=== PATIENT | male | born 1935 | race Caucasian/White ===

== ENCOUNTER → 2017-02-18 | Outpatient (CLI) | payer MEDICARE, OTHER ==
[~2017-02-18] MED LIST: /METH500TA OR; ACET65TA PO; ALFUZOSIN OR; ALLO300T OR; ASPI81TA83 OR; BISA10SU2 PR; CIPR500T19 OR; COLA100C2 OR; DILA2TAB OR; GASTROGRAFIN SOLUTION 30ML (Q9963) As Ordered ONE; IBUP600T PO; ISOVUE-370 76% 100ML VIAL (Q9967) As Ordered ONE; MACROBID PO; MAGN500T2 PO; MILKSUS OR; MOVE FREE; MULTIVIT OR; NEXI20GR OR; PERC7.5T8 OR; PROS5TAB OR; SENN8.6T14 OR; VICO5TAB PO; VITA50TA12 OR; ZOCO40TA OR
--- NOTE | 2017-02-18 16:50 | REP ---
CT of the abdomen and pelvis with IV and bowel contrast: Comparison is 2015. The visualized lung gao are unchanged unremarkable. The hepatic parenchyma is homogeneous. There is a focal 1 cm low density lesion at the inferior tip of the liver, unchanged, likely an hepatic cyst. The gallbladder is surgically absent. The pancreas and spleen are normal size, unremarkable and unchanged. The adrenals and kidneys are unchanged. There is no hydronephrosis. There are nonobstructive bilateral renal calculi as previously. There is no abdominal aortic aneurysm. Calcified atheroma is incidentally noted as previously. There is no retroperitoneal adenopathy or mass. There is no bowel distension or obstruction. The appendix is surgically absent. Pelvis: There is a trace of ascites in the dependent pelvis. There is no adenopathy or mass. The bladder is incompletely distended but otherwise unremarkable. There is descending colon and sigmoid colon diverticulosis without diverticulitis as previously. Impression: Diverticulosis without diverticulitis. Nonobstructive renal calculi. No hydronephrosis. There is a 1 cm cyst inferiorly in the right lobe of the liver, unchanged. Cholecystectomy and appendectomy. No bowel obstruction. Trace of ascites in the pelvis. Signed by Lane Butler MD 02/18/2017 04:41 P
== END ==
LOC: M RAD 13:38
PROVIDERS: ATTEND Internal Medicine
DX: R10.31 Right lower quadrant pain (principal); R18.8 Other ascites; K57.30 Diverticulosis of large intestine without perforation or abscess without bleeding; N20.0 Calculus of kidney; K76.89 Other specified diseases of liver
CPT/HCPCS: 74177; Q9963; Q9967

== ENCOUNTER 2017-06-25 08:06 | Inpatient (IN) | payer MEDICARE, OTHER ==
[2017-06-25] MEDS: NS 500 ML IV (08:30)
[2017-06-25 09:01] LABS: HEMATOCRIT 35.9 % (42.0-52.0); HEMOGLOBIN 12.4 g/dl (14.0-18.0); MEAN CORPUSCULAR HEMOGLOBIN 33.2 pg (27.0-33.0); MEAN CORPUSCULAR HGB CONC 34.5 g/dl (32.0-36.5); MEAN CORPUSCULAR VOLUME 96.2 fl (80.0-96.0); PLATELET COUNT, AUTOMATED 191 10^3/uL (150-450); RED BLOOD COUNT 3.73 10^6/uL (4.30-6.10); RED CELL DISTRIBUTION WIDTH 13.8 % (11.5-14.5)
[2017-06-25 09:03] LABS: POS COUNT POS FLAG; POSITIVE MORPH POS FLAG
[2017-06-25 09:04] LABS: ADD MANUAL DIFFER YES; DIFF SLIDE NUMBER 144
[2017-06-25] MEDS: NS 1,000 ML IV ×3 (09:04→16:35)
[2017-06-25] MEDS: ACETAMINOPHEN TAB 650MG DOSE (2X325MG) PO ×2 (09:05→15:38)
[2017-06-25 09:11] LABS: INR 1.44; PROTHROMBIN TIME 17.9 SECONDS (12.4-14.5)
[2017-06-25 09:24] LABS: ANISOCYTOSIS 1+; ATYPICAL LYMPH 2 % (0-5); BANDS 3 % (< 11); LYMPHOCYTES 1 % (16-52); METAMYELOCYTES 3 % (0-0); MONOCYTES 4 % (0-8); MYELOCYTES 1 % (0-0); NEUTROPHILS 86 % (35-75); PLATELET ESTIMATE NORMAL (NORMAL)
[2017-06-25 09:25] LABS: TOXIC GRANULATION 1+
[2017-06-25 09:29] LABS: ALKALINE PHOSPHATASE 64 U/L (45-117); ALT/SGPT 23 U/L (12-78); AST/SGOT 52 U/L (7-37); BILIRUBIN,DIRECT 0.6 MG/DL (0.0-0.2); BILIRUBIN,TOTAL 1.9 MG/DL (0.2-1.0); BLOOD UREA NITROGEN 26 MG/DL (7-18); CALCIUM LEVEL 8.6 MG/DL (8.8-10.2); CARBON DIOXIDE LEVEL 26 MEQ/L (21-32); CHLORIDE LEVEL 105 MEQ/L (98-107); CREATININE FOR GFR 1.36 MG/DL (0.70-1.30); GLUCOSE, FASTING 135 MG/DL (70-100); LIPASE 39 U/L (73-393); POTASSIUM SERUM 3.4 MEQ/L (3.5-5.1); TOTAL PROTEIN 6.3 GM/DL (6.4-8.2); TROPONIN I 0.02 NG/ML (< 0.10)
[2017-06-25 09:30] LABS: LACTIC ACID SEPSIS PROTOCOL 3.1 MMOL/L (0.4-2.0)
[2017-06-25 09:39] LABS: CK-MB VALUE MASS 5.9 NG/ML (0.0-3.6); CPK CREATINE PHOSPHOKINASE 2052 U/L (39-308); MB/CK RELATIVE INDEX 0.28 (< OR =4)
[2017-06-25 09:44] LABS: ALBUMIN 3.3 GM/DL (3.2-5.2); ANION GAP 10 MEQ/L (8-16); SODIUM LEVEL 141 MEQ/L (136-145)
[2017-06-25 10:28] LABS: KETONE, URINE AUTO RFX TRACE mg/dL (NEGATIVE); LEUKOCYTE ESTERASE UR AUTO RFX NEGATIVE (NEGATIVE); MUCUS, URINE RFX SMALL (NEGATIVE); NITRITE, URINE AUTO RFX NEGATIVE (NEGATIVE); RBC, URINE AUTO RFX 38 /HPF (0-3); SQUAM EPITHELIAL CELL UR AURFX 1 /HPF (0-6); WBC, URINE AUTO RFX 8 /HPF (0-3)
[2017-06-25 10:46] LABS: INFLUENZA A AMPLIFICATION NEGATIVE (NEGATIVE); INFLUENZA B AMPLIFICATION NEGATIVE (NEGATIVE)
[2017-06-25] MEDS: LevoFLOXacin IV 750 MG in APPROPRIATE DILUENT 1 EA IV (10:49)
[2017-06-25] MEDS: NS IV (10:50)
[2017-06-25] MEDS: DILUENT IV (10:50)
[2017-06-25 11:09] LABS: PHOSPHORUS LEVEL 1.1 MG/DL (2.5-4.9)
[2017-06-25 11:38] LABS: MYOGLOBIN 7108 NG/ML (16-116)
[2017-06-25] MEDS ORDERED: ONDANSETRON 4MG/2ML VIAL (J2405) IV (11:45)
[2017-06-25] MEDS ORDERED: POTASSIUM PHOSPHATE INJ 30 MMOL in D5W 500 ML IV ×2 (13:00→14:00)
[2017-06-25] MEDS: POTASSIUM PHOSPHATE INJ 30 MMOL in D5W 500 ML IV (15:37)
[2017-06-25 16:12] LABS: LACTIC ACID SEPSIS PROTOCOL 2.1 MMOL/L (0.4-2.0)
[2017-06-25 16:27] LABS: MYOGLOBIN SCREEN, URINE POSITIVE (NEGATIVE)
[2017-06-25 17:10] LABS: SODIUM,RANDOM URINE < 10 MEQ/L
[2017-06-25] MEDS: traMADol 50 MG TAB PO (17:13)
[2017-06-25] MEDS: HEPARIN SOD (PORCINE) 5000 UNITS/ML VIAL SC ×2 (17:45→21:08)
[2017-06-25] MEDS: SENOKOT S TAB PO (17:45)
[2017-06-25] MEDS: PANTOPRAZOLE 40MG TAB (PROTONIX) PO (17:45)
[2017-06-25] MEDS: ASPIRIN 81 MG ENTERIC TAB PO (17:45)
[2017-06-25] MEDS: ALLOPURINOL 100 MG TAB PO (17:45)
[2017-06-25 18:12] LABS: ANION GAP 8 MEQ/L (8-16); BLOOD UREA NITROGEN 24 MG/DL (7-18); CALCIUM LEVEL 7.7 MG/DL (8.8-10.2); CARBON DIOXIDE LEVEL 24 MEQ/L (21-32); CHLORIDE LEVEL 108 MEQ/L (98-107); CREATININE FOR GFR 0.98 MG/DL (0.70-1.30); GLOMERULAR FILTRATION RATE > 60.0 (>35); GLUCOSE, FASTING 129 MG/DL (70-100); PHOSPHORUS LEVEL 1.8 MG/DL (2.5-4.9); POTASSIUM SERUM 3.5 MEQ/L (3.5-5.1); SODIUM LEVEL 140 MEQ/L (136-145)
[2017-06-25] MEDS: MORPHINE 4 MG/ML 1ML VIAL (J2270) IV ×3 (18:42→23:23)
[2017-06-25] MEDS: FAMOTIDINE 20 MG TAB PO (21:06)
[2017-06-25] MEDS: ATORVASTATIN 20 MG TAB PO (21:06)
[2017-06-25] MEDS: FINASTERIDE 5 MG TAB PO (21:06)
[2017-06-25] MEDS: SODIUM PHOSPHATE INJ 20 MMOL in D5W 250 ML IV (21:54)
[2017-06-26] MEDS: ACETAMINOPHEN TAB 650MG DOSE (2X325MG) PO ×3 (00:40→09:40)
[2017-06-26] MEDS: SALIVA SUBSTITUTE(MOUTHKOTE) BTL MT ×2 (00:40→03:22)
[2017-06-26] MEDS: NS 1,000 ML IV ×3 (03:22→20:40)
[2017-06-26] MEDS: MORPHINE 4 MG/ML 1ML VIAL (J2270) IV ×3 (03:29→20:30)
[2017-06-26] MEDS: KETOROLAC 30 MG/ML VIAL (J1885) IV ×2 (04:53→14:09)
[2017-06-26] MEDS: HEPARIN SOD (PORCINE) 5000 UNITS/ML VIAL SC ×3 (04:53→20:31)
[2017-06-26] MEDS: CEPACOL LOZENGE PO (04:54)
[2017-06-26 06:33] LABS: HEMATOCRIT 32.4 % (42.0-52.0); HEMOGLOBIN 11.3 g/dl (14.0-18.0); MEAN CORPUSCULAR HEMOGLOBIN 33.3 pg (27.0-33.0); MEAN CORPUSCULAR HGB CONC 34.9 g/dl (32.0-36.5); MEAN CORPUSCULAR VOLUME 95.6 fl (80.0-96.0); PLATELET COUNT, AUTOMATED 169 10^3/uL (150-450); RED BLOOD COUNT 3.39 10^6/uL (4.30-6.10); RED CELL DISTRIBUTION WIDTH 13.8 % (11.5-14.5); WHITE BLOOD COUNT 26.3 10^3/uL (4.0-10.0)
[2017-06-26 06:34] LABS: ADD MANUAL DIFFER YES; DIFF SLIDE NUMBER 84; POS COUNT POS FLAG; POSITIVE MORPH POS FLAG
[2017-06-26 06:52] LABS: ALBUMIN 2.4 GM/DL (3.2-5.2); ALBUMIN/GLOBULIN RATIO 0.73 (1.00-1.93); ALKALINE PHOSPHATASE 62 U/L (45-117); ALT/SGPT 34 U/L (12-78); ANION GAP 8 MEQ/L (8-16); AST/SGOT 69 U/L (7-37); BILIRUBIN,TOTAL 1.1 MG/DL (0.2-1.0); BLOOD UREA NITROGEN 22 MG/DL (7-18); CALCIUM LEVEL 7.7 MG/DL (8.8-10.2); CARBON DIOXIDE LEVEL 24 MEQ/L (21-32); CHLORIDE LEVEL 106 MEQ/L (98-107); CPK CREATINE PHOSPHOKINASE 1325 U/L (39-308); CREATININE FOR GFR 0.87 MG/DL (0.70-1.30); GLOMERULAR FILTRATION RATE > 60.0 (>35); GLUCOSE, FASTING 102 MG/DL (70-100); POTASSIUM SERUM 3.4 MEQ/L (3.5-5.1); SODIUM LEVEL 138 MEQ/L (136-145); TOTAL PROTEIN 5.7 GM/DL (6.4-8.2)
[2017-06-26 07:11] LABS: BANDS 5 % (< 11); LYMPHOCYTES 6 % (16-52); MONOCYTES 7 % (0-8); NEUTROPHILS 82 % (35-75)
[2017-06-26 07:12] LABS: ANISOCYTOSIS 1+; PLATELET ESTIMATE NORMAL (NORMAL)
[2017-06-26 08:19] LABS: PHOSPHORUS LEVEL 2.1 MG/DL (2.5-4.9)
[2017-06-26] MEDS ORDERED: PIPERACILLIN/TAZOBACTAM SOD 2.25 GM in APPROPRIATE DILUENT 1 EA IV (09:00)
[2017-06-26] MEDS: NS 500 ML IV (09:25)
[2017-06-26] MEDS: FAMOTIDINE 20 MG TAB PO ×2 (09:38→20:29)
[2017-06-26] MEDS: ASPIRIN 81 MG ENTERIC TAB PO (09:39)
[2017-06-26] MEDS: ALLOPURINOL 100 MG TAB PO (09:39)
[2017-06-26] MEDS: PIPERACILLIN/TAZOBACTAM SOD 3.375 GM in APPROPRIATE DILUENT 1 EA IV ×3 (09:40→20:40)
[2017-06-26] MEDS: PANTOPRAZOLE 40MG TAB (PROTONIX) PO (09:40)
[2017-06-26] MEDS: NEUTRA-PHOS 1.25 GM PACKET PO ×3 (10:18→20:31)
[2017-06-26] MEDS: POTASSIUM CHLORIDE 10 MEQ SR TABLET PO (10:19)
[2017-06-26] MEDS ORDERED: SLF 3 ML SYR IV (17:15)
[2017-06-26] MEDS: ATORVASTATIN 20 MG TAB PO (20:29)
[2017-06-26] MEDS: FINASTERIDE 5 MG TAB PO (20:30)
[2017-06-26] MEDS: SLF 3 ML SYR IV (20:31)
[2017-06-26] MEDS: MAALOX 30 ML SUSP *UDC PO (23:17)
[2017-06-27] MEDS: NS 1,000 ML IV (01:49)
[2017-06-27] MEDS: MORPHINE 4 MG/ML 1ML VIAL (J2270) IV ×2 (01:57→05:18)
[2017-06-27] MEDS: PIPERACILLIN/TAZOBACTAM SOD 3.375 GM in APPROPRIATE DILUENT 1 EA IV ×4 (01:57→21:08)
[2017-06-27] MEDS: KETOROLAC 30 MG/ML VIAL (J1885) IV ×2 (04:00→13:56)
[2017-06-27 05:17] LABS: BASO # 0.1 10^3/uL (0.0-0.2); BASO % 0.2 % (0.0-1.0); EOS % 0.2 % (0.0-3.0); HEMATOCRIT 32.5 % (42.0-52.0); HEMOGLOBIN 11.4 g/dl (14.0-18.0); IMMATURE GRANULOCYTE % 0.6 % (0-3.0); LYMPH % 4.5 % (24.0-44.0); MEAN CORPUSCULAR HEMOGLOBIN 32.9 pg (27.0-33.0); MEAN CORPUSCULAR HGB CONC 35.1 g/dl (32.0-36.5); MEAN CORPUSCULAR VOLUME 93.9 fl (80.0-96.0); MONO # 1.2 10^3/uL (0.0-0.8); MONO % 5.3 % (0.0-5.0); NEUTROPHILS # 20.4 10^3/uL (1.8-7.7); NEUTROPHILS % 89.2 % (36.0-66.0); PLATELET COUNT, AUTOMATED 173 10^3/uL (150-450); RED BLOOD COUNT 3.46 10^6/uL (4.30-6.10); WHITE BLOOD COUNT 22.8 10^3/uL (4.0-10.0)
[2017-06-27] MEDS: HEPARIN SOD (PORCINE) 5000 UNITS/ML VIAL SC ×3 (05:18→21:09)
[2017-06-27] MEDS: SLF 3 ML SYR IV ×3 (05:19→21:09)
[2017-06-27 05:45] LABS: ALBUMIN 2.1 GM/DL (3.2-5.2); ALBUMIN/GLOBULIN RATIO 0.64 (1.00-1.93); ALKALINE PHOSPHATASE 67 U/L (45-117); ALT/SGPT 43 U/L (12-78); ANION GAP 6 MEQ/L (8-16); AST/SGOT 61 U/L (7-37); BILIRUBIN,TOTAL 0.6 MG/DL (0.2-1.0); BLOOD UREA NITROGEN 22 MG/DL (7-18); CALCIUM LEVEL 7.6 MG/DL (8.8-10.2); CARBON DIOXIDE LEVEL 24 MEQ/L (21-32); CHLORIDE LEVEL 108 MEQ/L (98-107); CPK CREATINE PHOSPHOKINASE 464 U/L (39-308); CREATININE FOR GFR 0.73 MG/DL (0.70-1.30); GLOMERULAR FILTRATION RATE > 60.0 (>35); GLUCOSE, FASTING 100 MG/DL (70-100); MAGNESIUM LEVEL 2.4 MG/DL (1.8-2.4); POTASSIUM SERUM 3.5 MEQ/L (3.5-5.1); SODIUM LEVEL 138 MEQ/L (136-145); TOTAL PROTEIN 5.4 GM/DL (6.4-8.2)
[2017-06-27] MEDS ORDERED: MORPHINE 4 MG/ML 1ML VIAL (J2270) IV (08:45)
[2017-06-27] MEDS: NEUTRA-PHOS 1.25 GM PACKET PO ×3 (09:02→21:09)
[2017-06-27] MEDS: ASPIRIN 81 MG ENTERIC TAB PO (09:02)
[2017-06-27] MEDS: ALLOPURINOL 100 MG TAB PO (09:02)
[2017-06-27] MEDS: FAMOTIDINE 20 MG TAB PO ×2 (09:03→21:09)
[2017-06-27] MEDS: PANTOPRAZOLE 40MG TAB (PROTONIX) PO (09:03)
[2017-06-27] MEDS ORDERED: LevoFLOXacin IV 750 MG in APPROPRIATE DILUENT 1 EA IV (11:00)
[2017-06-27] MEDS: MOM 30ML SUSPENSION UDC PO (13:55)
[2017-06-27 14:04] LABS: PHOSPHORUS LEVEL 1.7 MG/DL (2.5-4.9)
[2017-06-27] MEDS: ATORVASTATIN 20 MG TAB PO (21:09)
[2017-06-27] MEDS: FINASTERIDE 5 MG TAB PO (21:09)
[2017-06-28] MEDS: HEPARIN SOD (PORCINE) 5000 UNITS/ML VIAL SC ×3 (05:17→21:46)
[2017-06-28] MEDS: PIPERACILLIN/TAZOBACTAM SOD 3.375 GM in APPROPRIATE DILUENT 1 EA IV ×4 (05:17→21:44)
[2017-06-28] MEDS: SLF 3 ML SYR IV ×3 (05:17→21:47)
[2017-06-28 05:38] LABS: BASO % 0.1 % (0.0-1.0); EOS # 0.1 10^3/uL (0.0-0.50); EOS % 0.6 % (0.0-3.0); HEMATOCRIT 32.8 % (42.0-52.0); HEMOGLOBIN 11.6 g/dl (14.0-18.0); IMMATURE GRANULOCYTE % 0.8 % (0-3.0); LYMPH # 1.5 10^3/uL (1.5-4.5); LYMPH % 7.6 % (24.0-44.0); MEAN CORPUSCULAR HEMOGLOBIN 32.7 pg (27.0-33.0); MEAN CORPUSCULAR HGB CONC 35.4 g/dl (32.0-36.5); MEAN CORPUSCULAR VOLUME 92.4 fl (80.0-96.0); MONO # 1.6 10^3/uL (0.0-0.8); MONO % 8.2 % (0.0-5.0); NEUTROPHILS # 16.3 10^3/uL (1.8-7.7); NEUTROPHILS % 82.7 % (36.0-66.0); PLATELET COUNT, AUTOMATED 190 10^3/uL (150-450); RED BLOOD COUNT 3.55 10^6/uL (4.30-6.10); RED CELL DISTRIBUTION WIDTH 13.7 % (11.5-14.5); WHITE BLOOD COUNT 19.7 10^3/uL (4.0-10.0)
[2017-06-28 05:56] LABS: ALBUMIN 2.2 GM/DL (3.2-5.2); ALBUMIN/GLOBULIN RATIO 0.59 (1.00-1.93); ALKALINE PHOSPHATASE 109 U/L (45-117); ALT/SGPT 73 U/L (12-78); ANION GAP 7 MEQ/L (8-16); AST/SGOT 76 U/L (7-37); BILIRUBIN,TOTAL 0.7 MG/DL (0.2-1.0); BLOOD UREA NITROGEN 16 MG/DL (7-18); CALCIUM LEVEL 8.2 MG/DL (8.8-10.2); CARBON DIOXIDE LEVEL 26 MEQ/L (21-32); CHLORIDE LEVEL 107 MEQ/L (98-107); CPK CREATINE PHOSPHOKINASE 276 U/L (39-308); CREATININE FOR GFR 0.66 MG/DL (0.70-1.30); GLOMERULAR FILTRATION RATE > 60.0 (>35); GLUCOSE, FASTING 93 MG/DL (70-100); MAGNESIUM LEVEL 2.2 MG/DL (1.8-2.4); PHOSPHORUS LEVEL 1.9 MG/DL (2.5-4.9); POTASSIUM SERUM 3.3 MEQ/L (3.5-5.1); SODIUM LEVEL 140 MEQ/L (136-145); TOTAL PROTEIN 5.9 GM/DL (6.4-8.2)
[2017-06-28] MEDS: KETOROLAC 30 MG/ML VIAL (J1885) IV ×2 (08:32→21:45)
[2017-06-28] MEDS: FAMOTIDINE 20 MG TAB PO ×2 (08:33→21:45)
[2017-06-28] MEDS: ALLOPURINOL 100 MG TAB PO (08:33)
[2017-06-28] MEDS: POTASSIUM CHLORIDE 10 MEQ SR TABLET PO (08:33)
[2017-06-28] MEDS: NEUTRA-PHOS 1.25 GM PACKET PO ×3 (08:33→21:46)
[2017-06-28] MEDS: PANTOPRAZOLE 40MG TAB (PROTONIX) PO (08:33)
[2017-06-28] MEDS: ASPIRIN 81 MG ENTERIC TAB PO (08:34)
[2017-06-28] MEDS ORDERED: PERCOCET 5MG/325MG TAB PO (10:00)
[2017-06-28] MEDS: FINASTERIDE 5 MG TAB PO (21:45)
[2017-06-28] MEDS: LATANOPROST 0.005% OPHTH SOLN 2.5 ML OU (21:45)
[2017-06-28] MEDS: ATORVASTATIN 20 MG TAB PO (21:45)
[2017-06-28] MEDS: NORTRIPTYLINE 10 MG CAP PO (21:46)
[2017-06-29] MEDS: ACETAMINOPHEN TAB 650MG DOSE (2X325MG) PO ×2 (00:55→23:57)
[2017-06-29] MEDS: PIPERACILLIN/TAZOBACTAM SOD 3.375 GM in APPROPRIATE DILUENT 1 EA IV ×4 (04:26→21:00)
[2017-06-29 05:11] LABS: BASO % 0.1 % (0.0-1.0); EOS # 0.3 10^3/uL (0.0-0.50); EOS % 2.2 % (0.0-3.0); HEMATOCRIT 31.7 % (42.0-52.0); HEMOGLOBIN 10.8 g/dl (14.0-18.0); IMMATURE GRANULOCYTE % 1.3 % (0-3.0); MEAN CORPUSCULAR HEMOGLOBIN 32.4 pg (27.0-33.0); MEAN CORPUSCULAR HGB CONC 34.1 g/dl (32.0-36.5); MEAN CORPUSCULAR VOLUME 95.2 fl (80.0-96.0); MONO # 1.5 10^3/uL (0.0-0.8); MONO % 11.3 % (0.0-5.0); NEUTROPHILS # 9.4 10^3/uL (1.8-7.7); NEUTROPHILS % 70.1 % (36.0-66.0); PLATELET COUNT, AUTOMATED 186 10^3/uL (150-450); RED BLOOD COUNT 3.33 10^6/uL (4.30-6.10); RED CELL DISTRIBUTION WIDTH 14.6 % (11.5-14.5); WHITE BLOOD COUNT 13.4 10^3/uL (4.0-10.0)
[2017-06-29] MEDS: SLF 3 ML SYR IV ×3 (05:27→20:35)
[2017-06-29] MEDS: HEPARIN SOD (PORCINE) 5000 UNITS/ML VIAL SC ×3 (05:27→20:34)
[2017-06-29 05:33] LABS: ALBUMIN 2.1 GM/DL (3.2-5.2); ALBUMIN/GLOBULIN RATIO 0.62 (1.00-1.93); ALKALINE PHOSPHATASE 104 U/L (45-117); ALT/SGPT 81 U/L (12-78); ANION GAP 6 MEQ/L (8-16); AST/SGOT 70 U/L (7-37); BILIRUBIN,TOTAL 0.5 MG/DL (0.2-1.0); BLOOD UREA NITROGEN 13 MG/DL (7-18); C REACTIVE PROTEIN QUANTITATIV 7.42 MG/DL (0.00-0.30); CALCIUM LEVEL 7.5 MG/DL (8.8-10.2); CARBON DIOXIDE LEVEL 28 MEQ/L (21-32); CHLORIDE LEVEL 111 MEQ/L (98-107); CPK CREATINE PHOSPHOKINASE 167 U/L (39-308); CREATININE FOR GFR 0.59 MG/DL (0.70-1.30); GLOMERULAR FILTRATION RATE > 60.0 (>35); GLUCOSE, FASTING 94 MG/DL (70-100); MAGNESIUM LEVEL 2.1 MG/DL (1.8-2.4); PHOSPHORUS LEVEL 3.6 MG/DL (2.5-4.9); POTASSIUM SERUM 3.4 MEQ/L (3.5-5.1); SODIUM LEVEL 145 MEQ/L (136-145); TOTAL PROTEIN 5.5 GM/DL (6.4-8.2)
[2017-06-29] MEDS: KETOROLAC 30 MG/ML VIAL (J1885) IV (08:10)
[2017-06-29] MEDS: NEUTRA-PHOS 1.25 GM PACKET PO ×3 (08:10→20:33)
[2017-06-29] MEDS: ALLOPURINOL 100 MG TAB PO (08:11)
[2017-06-29] MEDS: POTASSIUM CHLORIDE 10 MEQ SR TABLET PO (08:11)
[2017-06-29] MEDS: PANTOPRAZOLE 40MG TAB (PROTONIX) PO (08:11)
[2017-06-29] MEDS: FAMOTIDINE 20 MG TAB PO ×2 (08:11→20:33)
[2017-06-29] MEDS: ASPIRIN 81 MG ENTERIC TAB PO (08:11)
[2017-06-29] MEDS ORDERED: OMEPRAZOLE 20 MG CAP PO (09:00)
[2017-06-29] MEDS: GABAPENTIN 100 MG CAP PO ×3 (10:55→20:32)
[2017-06-29] MEDS: FINASTERIDE 5 MG TAB PO (20:32)
[2017-06-29] MEDS: NORTRIPTYLINE 10 MG CAP PO (20:34)
[2017-06-29] MEDS: LATANOPROST 0.005% OPHTH SOLN 2.5 ML OU (20:34)
[2017-06-29] MEDS: ATORVASTATIN 20 MG TAB PO (20:35)
[2017-06-30] MEDS: PIPERACILLIN/TAZOBACTAM SOD 3.375 GM in APPROPRIATE DILUENT 1 EA IV ×2 (03:00→08:27)
[2017-06-30 05:24] LABS: BASO # 0.1 10^3/uL (0.0-0.2); BASO % 0.4 % (0.0-1.0); EOS # 0.4 10^3/uL (0.0-0.50); EOS % 3.2 % (0.0-3.0); HEMATOCRIT 33.4 % (42.0-52.0); HEMOGLOBIN 11.3 g/dl (14.0-18.0); IMMATURE GRANULOCYTE % 1.9 % (0-3.0); LYMPH # 2.5 10^3/uL (1.5-4.5); LYMPH % 18.1 % (24.0-44.0); MEAN CORPUSCULAR HEMOGLOBIN 32.3 pg (27.0-33.0); MEAN CORPUSCULAR HGB CONC 33.8 g/dl (32.0-36.5); MEAN CORPUSCULAR VOLUME 95.4 fl (80.0-96.0); MONO # 1.7 10^3/uL (0.0-0.8); MONO % 12.2 % (0.0-5.0); NEUTROPHILS # 8.9 10^3/uL (1.8-7.7); NEUTROPHILS % 64.2 % (36.0-66.0); PLATELET COUNT, AUTOMATED 227 10^3/uL (150-450); RED CELL DISTRIBUTION WIDTH 14.6 % (11.5-14.5); WHITE BLOOD COUNT 13.8 10^3/uL (4.0-10.0)
[2017-06-30] MEDS: SLF 3 ML SYR IV ×3 (05:27→21:29)
[2017-06-30] MEDS: HEPARIN SOD (PORCINE) 5000 UNITS/ML VIAL SC ×3 (05:31→21:28)
[2017-06-30 05:47] LABS: ALBUMIN 2.1 GM/DL (3.2-5.2); ALBUMIN/GLOBULIN RATIO 0.78 (1.00-1.93); ALKALINE PHOSPHATASE 110 U/L (45-117); ALT/SGPT 86 U/L (12-78); ANION GAP 8 MEQ/L (8-16); AST/SGOT 61 U/L (7-37); BILIRUBIN,TOTAL 0.6 MG/DL (0.2-1.0); BLOOD UREA NITROGEN 11 MG/DL (7-18); C REACTIVE PROTEIN QUANTITATIV 5.26 MG/DL (0.00-0.30); CALCIUM LEVEL 7.6 MG/DL (8.8-10.2); CARBON DIOXIDE LEVEL 26 MEQ/L (21-32); CHLORIDE LEVEL 110 MEQ/L (98-107); CPK CREATINE PHOSPHOKINASE 73 U/L (39-308); CREATININE FOR GFR 0.61 MG/DL (0.70-1.30); GLOMERULAR FILTRATION RATE > 60.0 (>35); GLUCOSE, FASTING 83 MG/DL (70-100); PHOSPHORUS LEVEL 3.1 MG/DL (2.5-4.9); SODIUM LEVEL 144 MEQ/L (136-145); TOTAL PROTEIN 4.8 GM/DL (6.4-8.2)
[2017-06-30] MEDS ORDERED: LevoFLOXacin 750 MG TABLET PO (06:00)
[2017-06-30] MEDS: ASPIRIN 81 MG ENTERIC TAB PO (08:28)
[2017-06-30] MEDS: ALLOPURINOL 100 MG TAB PO (08:28)
[2017-06-30] MEDS: ACETAMINOPHEN TAB 650MG DOSE (2X325MG) PO ×2 (08:28→21:28)
[2017-06-30] MEDS: FAMOTIDINE 20 MG TAB PO ×2 (08:28→20:10)
[2017-06-30] MEDS: GABAPENTIN 100 MG CAP PO ×3 (08:28→20:09)
[2017-06-30] MEDS: PANTOPRAZOLE 40MG TAB (PROTONIX) PO (08:28)
[2017-06-30] MEDS: NEUTRA-PHOS 1.25 GM PACKET PO ×3 (08:29→20:09)
[2017-06-30] MEDS: NORTRIPTYLINE 10 MG CAP PO (20:09)
[2017-06-30] MEDS: ATORVASTATIN 20 MG TAB PO (20:10)
[2017-06-30] MEDS: LATANOPROST 0.005% OPHTH SOLN 2.5 ML OU (20:10)
[2017-06-30] MEDS: FINASTERIDE 5 MG TAB PO (20:10)
[2017-06-30] MEDS: LevoFLOXacin 500 MG TABLET PO (20:10)
[2017-07-01] MEDS: HEPARIN SOD (PORCINE) 5000 UNITS/ML VIAL SC ×3 (05:13→21:12)
[2017-07-01] MEDS: SLF 3 ML SYR IV ×3 (05:13→21:13)
[2017-07-01] MEDS: ACETAMINOPHEN TAB 650MG DOSE (2X325MG) PO ×2 (05:13→21:12)
[2017-07-01 05:32] LABS: BASO # 0.1 10^3/uL (0.0-0.2); BASO % 0.3 % (0.0-1.0); EOS # 0.3 10^3/uL (0.0-0.50); EOS % 1.8 % (0.0-3.0); HEMOGLOBIN 11.2 g/dl (14.0-18.0); IMMATURE GRANULOCYTE % 1.8 % (0-3.0); LYMPH # 2.3 10^3/uL (1.5-4.5); LYMPH % 12.6 % (24.0-44.0); MEAN CORPUSCULAR HEMOGLOBIN 32.6 pg (27.0-33.0); MEAN CORPUSCULAR HGB CONC 33.9 g/dl (32.0-36.5); MEAN CORPUSCULAR VOLUME 95.9 fl (80.0-96.0); MONO # 1.5 10^3/uL (0.0-0.8); MONO % 8.1 % (0.0-5.0); NEUTROPHILS % 75.4 % (36.0-66.0); PLATELET COUNT, AUTOMATED 244 10^3/uL (150-450); RED BLOOD COUNT 3.44 10^6/uL (4.30-6.10); RED CELL DISTRIBUTION WIDTH 14.2 % (11.5-14.5); WHITE BLOOD COUNT 18.6 10^3/uL (4.0-10.0)
[2017-07-01 05:52] LABS: ALBUMIN/GLOBULIN RATIO 0.54 (1.00-1.93); ALKALINE PHOSPHATASE 104 U/L (45-117); ALT/SGPT 68 U/L (12-78); ANION GAP 7 MEQ/L (8-16); AST/SGOT 37 U/L (7-37); BILIRUBIN,TOTAL 0.5 MG/DL (0.2-1.0); BLOOD UREA NITROGEN 10 MG/DL (7-18); C REACTIVE PROTEIN QUANTITATIV 6.06 MG/DL (0.00-0.30); CARBON DIOXIDE LEVEL 29 MEQ/L (21-32); CHLORIDE LEVEL 106 MEQ/L (98-107); CREATININE FOR GFR 0.64 MG/DL (0.70-1.30); GLOMERULAR FILTRATION RATE > 60.0 (>35); GLUCOSE, FASTING 89 MG/DL (70-100); MAGNESIUM LEVEL 2.1 MG/DL (1.8-2.4); PHOSPHORUS LEVEL 2.8 MG/DL (2.5-4.9); POTASSIUM SERUM 3.9 MEQ/L (3.5-5.1); SODIUM LEVEL 142 MEQ/L (136-145); TOTAL PROTEIN 5.7 GM/DL (6.4-8.2)
[2017-07-01] MEDS: PANTOPRAZOLE 40MG TAB (PROTONIX) PO (09:03)
[2017-07-01] MEDS: ALLOPURINOL 100 MG TAB PO (09:03)
[2017-07-01] MEDS: NEUTRA-PHOS 1.25 GM PACKET PO ×3 (09:03→21:12)
[2017-07-01] MEDS: FAMOTIDINE 20 MG TAB PO ×2 (09:03→21:12)
[2017-07-01] MEDS: GABAPENTIN 100 MG CAP PO ×3 (09:03→21:12)
[2017-07-01] MEDS: ASPIRIN 81 MG ENTERIC TAB PO (09:03)
[2017-07-01] MEDS: PIPERACILLIN/TAZOBACTAM SOD 3.375 GM in APPROPRIATE DILUENT 1 EA IV ×2 (11:12→16:07)
[2017-07-01] MEDS: LATANOPROST 0.005% OPHTH SOLN 2.5 ML OU (21:00)
[2017-07-01] MEDS: ATORVASTATIN 20 MG TAB PO (21:11)
[2017-07-01] MEDS: NORTRIPTYLINE 10 MG CAP PO (21:11)
[2017-07-01] MEDS: FINASTERIDE 5 MG TAB PO (21:12)
[2017-07-02] MEDS: PIPERACILLIN/TAZOBACTAM SOD 3.375 GM in APPROPRIATE DILUENT 1 EA IV ×5 (00:04→22:53)
[2017-07-02] MEDS: ACETAMINOPHEN TAB 650MG DOSE (2X325MG) PO (05:02)
[2017-07-02] MEDS: SLF 3 ML SYR IV ×3 (05:02→21:33)
[2017-07-02 05:30] LABS: BASO # 0.1 10^3/uL (0.0-0.2); BASO % 0.2 % (0.0-1.0); EOS # 0.3 10^3/uL (0.0-0.50); EOS % 1.2 % (0.0-3.0); HEMOGLOBIN 11.6 g/dl (14.0-18.0); IMMATURE GRANULOCYTE % 1.7 % (0-3.0); LYMPH # 2.6 10^3/uL (1.5-4.5); LYMPH % 12.1 % (24.0-44.0); MEAN CORPUSCULAR HEMOGLOBIN 32.7 pg (27.0-33.0); MEAN CORPUSCULAR HGB CONC 34.1 g/dl (32.0-36.5); MEAN CORPUSCULAR VOLUME 95.8 fl (80.0-96.0); MONO # 1.3 10^3/uL (0.0-0.8); MONO % 6.2 % (0.0-5.0); NEUTROPHILS # 17.1 10^3/uL (1.8-7.7); NEUTROPHILS % 78.6 % (36.0-66.0); PLATELET COUNT, AUTOMATED 285 10^3/uL (150-450); RED BLOOD COUNT 3.55 10^6/uL (4.30-6.10); RED CELL DISTRIBUTION WIDTH 14.2 % (11.5-14.5); WHITE BLOOD COUNT 21.7 10^3/uL (4.0-10.0)
[2017-07-02] MEDS: HEPARIN SOD (PORCINE) 5000 UNITS/ML VIAL SC ×3 (05:43→21:32)
[2017-07-02 06:01] LABS: ALBUMIN 2.2 GM/DL (3.2-5.2); ALBUMIN/GLOBULIN RATIO 0.56 (1.00-1.93); ALKALINE PHOSPHATASE 103 U/L (45-117); ALT/SGPT 59 U/L (12-78); ANION GAP 6 MEQ/L (8-16); AST/SGOT 25 U/L (7-37); BILIRUBIN,TOTAL 0.5 MG/DL (0.2-1.0); BLOOD UREA NITROGEN 9 MG/DL (7-18); CALCIUM LEVEL 8.1 MG/DL (8.8-10.2); CARBON DIOXIDE LEVEL 29 MEQ/L (21-32); CHLORIDE LEVEL 107 MEQ/L (98-107); GLOMERULAR FILTRATION RATE > 60.0 (>35); GLUCOSE, FASTING 91 MG/DL (70-100); MAGNESIUM LEVEL 1.9 MG/DL (1.8-2.4); PHOSPHORUS LEVEL 3.4 MG/DL (2.5-4.9); POTASSIUM SERUM 3.9 MEQ/L (3.5-5.1); SODIUM LEVEL 142 MEQ/L (136-145); TOTAL PROTEIN 6.1 GM/DL (6.4-8.2)
[2017-07-02] MEDS: NEUTRA-PHOS 1.25 GM PACKET PO ×3 (08:46→21:31)
[2017-07-02] MEDS: PANTOPRAZOLE 40MG TAB (PROTONIX) PO (08:46)
[2017-07-02] MEDS: ASPIRIN 81 MG ENTERIC TAB PO (08:46)
[2017-07-02] MEDS: ALLOPURINOL 100 MG TAB PO (08:46)
[2017-07-02] MEDS: FAMOTIDINE 20 MG TAB PO ×2 (08:46→21:32)
[2017-07-02] MEDS: GABAPENTIN 100 MG CAP PO ×3 (08:46→21:32)
[2017-07-02] MEDS ORDERED: PILL CUTTER/CRUSHER XX (10:30)
[2017-07-02] MEDS: FINASTERIDE 5 MG TAB PO (21:32)
[2017-07-02] MEDS: LATANOPROST 0.005% OPHTH SOLN 2.5 ML OU (21:32)
[2017-07-02] MEDS: NORTRIPTYLINE 10 MG CAP PO (21:32)
[2017-07-02] MEDS: ATORVASTATIN 20 MG TAB PO (21:32)
[2017-07-03] MEDS: PIPERACILLIN/TAZOBACTAM SOD 3.375 GM in APPROPRIATE DILUENT 1 EA IV ×4 (04:47→23:16)
[2017-07-03] MEDS: HEPARIN SOD (PORCINE) 5000 UNITS/ML VIAL SC ×3 (06:08→21:17)
[2017-07-03] MEDS: SLF 3 ML SYR IV ×3 (06:08→21:27)
[2017-07-03 09:31] LABS: BASO # 0.1 10^3/uL (0.0-0.2); BASO % 0.3 % (0.0-1.0); EOS # 0.2 10^3/uL (0.0-0.50); EOS % 0.9 % (0.0-3.0); HEMATOCRIT 36.5 % (42.0-52.0); HEMOGLOBIN 12.4 g/dl (14.0-18.0); IMMATURE GRANULOCYTE % 1.7 % (0-3.0); LYMPH # 1.7 10^3/uL (1.5-4.5); LYMPH % 7.9 % (24.0-44.0); MEAN CORPUSCULAR VOLUME 97.1 fl (80.0-96.0); MONO % 4.6 % (0.0-5.0); NEUTROPHILS # 18.2 10^3/uL (1.8-7.7); NEUTROPHILS % 84.6 % (36.0-66.0); PLATELET COUNT, AUTOMATED 346 10^3/uL (150-450); RED BLOOD COUNT 3.76 10^6/uL (4.30-6.10); RED CELL DISTRIBUTION WIDTH 14.6 % (11.5-14.5); WHITE BLOOD COUNT 21.5 10^3/uL (4.0-10.0)
[2017-07-03] MEDS: PANTOPRAZOLE 40MG TAB (PROTONIX) PO (09:36)
[2017-07-03] MEDS: NEUTRA-PHOS 1.25 GM PACKET PO ×3 (09:36→21:25)
[2017-07-03] MEDS: ASPIRIN 81 MG ENTERIC TAB PO (09:36)
[2017-07-03] MEDS: FAMOTIDINE 20 MG TAB PO ×2 (09:37→20:15)
[2017-07-03] MEDS: GABAPENTIN 100 MG CAP PO ×2 (09:37→16:04)
[2017-07-03] MEDS: ALLOPURINOL 100 MG TAB PO (09:37)
[2017-07-03 09:53] LABS: ANION GAP 8 MEQ/L (8-16); BLOOD UREA NITROGEN 12 MG/DL (7-18); C REACTIVE PROTEIN QUANTITATIV 7.21 MG/DL (0.00-0.30); CALCIUM LEVEL 8.1 MG/DL (8.8-10.2); CARBON DIOXIDE LEVEL 26 MEQ/L (21-32); CHLORIDE LEVEL 106 MEQ/L (98-107); CREATININE FOR GFR 0.79 MG/DL (0.70-1.30); GLOMERULAR FILTRATION RATE > 60.0 (>35); GLUCOSE, FASTING 138 MG/DL (70-100); PHOSPHORUS LEVEL 3.2 MG/DL (2.5-4.9); SODIUM LEVEL 140 MEQ/L (136-145)
[2017-07-03 16:52] LABS: KETONE, URINE AUTO RFX NEGATIVE (NEGATIVE); NITRITE, URINE AUTO RFX NEGATIVE (NEGATIVE); RBC, URINE AUTO RFX 2 /HPF (0-3); SPECIFIC GRAVITY UR AUTO RFX 1.016 (1.002-1.035); SQUAM EPITHELIAL CELL UR AURFX 0 /HPF (0-6)
[2017-07-03 16:55] LABS: LEUKOCYTE ESTERASE UR AUTO RFX TRACE (NEGATIVE); WBC, URINE AUTO RFX 11 /HPF (0-3)
[2017-07-03] MEDS: GASTROGRAFIN SOLUTION 30ML PO ×2 (17:51→17:54)
[2017-07-03] MEDS: VANCOMYCIN HCL 1,000 MG, VIAL MATE ADAPTER 1 EACH in D5W 250 ML IV ×2 (17:51→21:17)
[2017-07-03] MEDS ORDERED: ISOVUE-370 76% 100ML VIAL (Q9967) As Ordered (18:32)
[2017-07-03] MEDS: NORTRIPTYLINE 10 MG CAP PO (20:16)
[2017-07-03] MEDS: ATORVASTATIN 20 MG TAB PO (20:16)
[2017-07-03] MEDS: GABAPENTIN 300 MG CAP PO (20:16)
[2017-07-03] MEDS: ACETAMINOPHEN TAB 650MG DOSE (2X325MG) PO (20:16)
[2017-07-03] MEDS: FINASTERIDE 5 MG TAB PO (20:16)
[2017-07-03] MEDS: LATANOPROST 0.005% OPHTH SOLN 2.5 ML OU (20:18)
[2017-07-03] MEDS: zolPIDEM TARTRATE 5 MG TAB PO (21:17)
[2017-07-04] MEDS: PIPERACILLIN/TAZOBACTAM SOD 3.375 GM in APPROPRIATE DILUENT 1 EA IV ×4 (05:07→23:59)
[2017-07-04] MEDS: SLF 3 ML SYR IV ×3 (05:08→21:45)
[2017-07-04] MEDS: HEPARIN SOD (PORCINE) 5000 UNITS/ML VIAL SC (05:08)
[2017-07-04 05:37] LABS: HEMATOCRIT 33.5 % (42.0-52.0); HEMOGLOBIN 11.3 g/dl (14.0-18.0); MEAN CORPUSCULAR HEMOGLOBIN 32.5 pg (27.0-33.0); MEAN CORPUSCULAR HGB CONC 33.7 g/dl (32.0-36.5); MEAN CORPUSCULAR VOLUME 96.3 fl (80.0-96.0); PLATELET COUNT, AUTOMATED 341 10^3/uL (150-450); RED BLOOD COUNT 3.48 10^6/uL (4.30-6.10); RED CELL DISTRIBUTION WIDTH 14.6 % (11.5-14.5); WHITE BLOOD COUNT 18.6 10^3/uL (4.0-10.0)
[2017-07-04 05:48] LABS: ALBUMIN 2.3 GM/DL (3.2-5.2); ALBUMIN/GLOBULIN RATIO 0.59 (1.00-1.93); ALKALINE PHOSPHATASE 95 U/L (45-117); ALT/SGPT 52 U/L (12-78); ANION GAP 8 MEQ/L (8-16); AST/SGOT 29 U/L (7-37); BILIRUBIN,TOTAL 0.5 MG/DL (0.2-1.0); BLOOD UREA NITROGEN 11 MG/DL (7-18); C REACTIVE PROTEIN QUANTITATIV 6.45 MG/DL (0.00-0.30); CALCIUM LEVEL 8.4 MG/DL (8.8-10.2); CARBON DIOXIDE LEVEL 27 MEQ/L (21-32); CHLORIDE LEVEL 107 MEQ/L (98-107); CREATININE FOR GFR 0.74 MG/DL (0.70-1.30); GLOMERULAR FILTRATION RATE > 60.0 (>35); GLUCOSE, FASTING 93 MG/DL (70-100); SODIUM LEVEL 142 MEQ/L (136-145); TOTAL PROTEIN 6.2 GM/DL (6.4-8.2)
[2017-07-04] MEDS: VANCOMYCIN HCL 1,000 MG, VIAL MATE ADAPTER 1 EACH in D5W 250 ML IV (08:41)
[2017-07-04] MEDS: PANTOPRAZOLE 40MG TAB (PROTONIX) PO (08:42)
[2017-07-04] MEDS: ASPIRIN 81 MG ENTERIC TAB PO (08:42)
[2017-07-04] MEDS: GABAPENTIN 300 MG CAP PO ×3 (08:42→21:43)
[2017-07-04] MEDS: FAMOTIDINE 20 MG TAB PO ×2 (08:42→21:44)
[2017-07-04] MEDS: NEUTRA-PHOS 1.25 GM PACKET PO ×3 (08:43→21:44)
[2017-07-04] MEDS: ALLOPURINOL 100 MG TAB PO (08:43)
[2017-07-04] MEDS: traMADol 50 MG TAB PO ×2 (11:05→17:16)
[2017-07-04] MEDS: ACETAMINOPHEN TAB 650MG DOSE (2X325MG) PO (19:46)
[2017-07-04] MEDS: ATORVASTATIN 20 MG TAB PO (21:43)
[2017-07-04] MEDS: FINASTERIDE 5 MG TAB PO (21:45)
[2017-07-04] MEDS: LATANOPROST 0.005% OPHTH SOLN 2.5 ML OU (21:45)
[2017-07-04] MEDS: NORTRIPTYLINE 10 MG CAP PO (21:45)
[2017-07-05 04:13] LABS: MEAN CORPUSCULAR HEMOGLOBIN 32.2 pg (27.0-33.0); MEAN CORPUSCULAR HGB CONC 32.4 g/dl (32.0-36.5); MEAN CORPUSCULAR VOLUME 99.4 fl (80.0-96.0); PLATELET COUNT, AUTOMATED 350 10^3/uL (150-450); RED BLOOD COUNT 3.42 10^6/uL (4.30-6.10); RED CELL DISTRIBUTION WIDTH 14.6 % (11.5-14.5); WHITE BLOOD COUNT 15.3 10^3/uL (4.0-10.0)
[2017-07-05 04:40] LABS: ALBUMIN 2.2 GM/DL (3.2-5.2); ALBUMIN/GLOBULIN RATIO 0.52 (1.00-1.93); ALKALINE PHOSPHATASE 87 U/L (45-117); ALT/SGPT 56 U/L (12-78); ANION GAP 5 MEQ/L (8-16); AST/SGOT 30 U/L (7-37); BILIRUBIN,TOTAL 0.4 MG/DL (0.2-1.0); BLOOD UREA NITROGEN 13 MG/DL (7-18); C REACTIVE PROTEIN QUANTITATIV 5.74 MG/DL (0.00-0.30); CALCIUM LEVEL 8.1 MG/DL (8.8-10.2); CARBON DIOXIDE LEVEL 29 MEQ/L (21-32); CHLORIDE LEVEL 105 MEQ/L (98-107); CREATININE FOR GFR 0.72 MG/DL (0.70-1.30); GLOMERULAR FILTRATION RATE > 60.0 (>35); GLUCOSE, FASTING 77 MG/DL (70-100); MAGNESIUM LEVEL 2.1 MG/DL (1.8-2.4); POTASSIUM SERUM 3.9 MEQ/L (3.5-5.1); SODIUM LEVEL 139 MEQ/L (136-145); TOTAL PROTEIN 6.4 GM/DL (6.4-8.2)
[2017-07-05] MEDS: PIPERACILLIN/TAZOBACTAM SOD 3.375 GM in APPROPRIATE DILUENT 1 EA IV ×4 (05:13→23:06)
[2017-07-05] MEDS: SLF 3 ML SYR IV ×3 (05:13→21:39)
[2017-07-05] MEDS: HEPARIN SOD (PORCINE) 5000 UNITS/ML VIAL SC ×3 (06:00→21:39)
[2017-07-05 07:26] LABS: VANCOMYCIN LEVEL TROUGH 6.2 UG/ML (10.0-20.0)
[2017-07-05] MEDS: VANCOMYCIN HCL 1,000 MG, VIAL MATE ADAPTER 1 EACH in D5W 250 ML IV ×2 (08:33→19:24)
[2017-07-05] MEDS: ASPIRIN 81 MG ENTERIC TAB PO (08:33)
[2017-07-05] MEDS: PANTOPRAZOLE 40MG TAB (PROTONIX) PO (08:33)
[2017-07-05] MEDS: ALLOPURINOL 100 MG TAB PO (08:33)
[2017-07-05] MEDS: NEUTRA-PHOS 1.25 GM PACKET PO ×3 (08:33→21:38)
[2017-07-05] MEDS: GABAPENTIN 300 MG CAP PO ×3 (08:33→21:37)
[2017-07-05] MEDS: FAMOTIDINE 20 MG TAB PO ×2 (08:33→21:38)
[2017-07-05] MEDS: traMADol 50 MG TAB PO ×3 (08:43→13:46)
[2017-07-05] MEDS: ACETAMINOPHEN TAB 650MG DOSE (2X325MG) PO ×2 (11:29→23:05)
[2017-07-05] MEDS: ATORVASTATIN 20 MG TAB PO (21:37)
[2017-07-05] MEDS: FINASTERIDE 5 MG TAB PO (21:38)
[2017-07-05] MEDS: NORTRIPTYLINE 10 MG CAP PO (21:38)
[2017-07-05] MEDS: LATANOPROST 0.005% OPHTH SOLN 2.5 ML OU (21:39)
[2017-07-06] MEDS: PIPERACILLIN/TAZOBACTAM SOD 3.375 GM in APPROPRIATE DILUENT 1 EA IV ×4 (04:19→23:25)
[2017-07-06] MEDS: ACETAMINOPHEN TAB 650MG DOSE (2X325MG) PO ×2 (04:20→12:59)
[2017-07-06 04:38] LABS: HEMATOCRIT 33.5 % (42.0-52.0); HEMOGLOBIN 11.1 g/dl (14.0-18.0); MEAN CORPUSCULAR HEMOGLOBIN 32.7 pg (27.0-33.0); MEAN CORPUSCULAR HGB CONC 33.1 g/dl (32.0-36.5); MEAN CORPUSCULAR VOLUME 98.8 fl (80.0-96.0); PLATELET COUNT, AUTOMATED 395 10^3/uL (150-450); RED BLOOD COUNT 3.39 10^6/uL (4.30-6.10); RED CELL DISTRIBUTION WIDTH 14.5 % (11.5-14.5); WHITE BLOOD COUNT 14.6 10^3/uL (4.0-10.0)
[2017-07-06 04:55] LABS: ALBUMIN 2.2 GM/DL (3.2-5.2); ALBUMIN/GLOBULIN RATIO 0.54 (1.00-1.93); ALKALINE PHOSPHATASE 90 U/L (45-117); ALT/SGPT 45 U/L (12-78); ANION GAP 7 MEQ/L (8-16); AST/SGOT 26 U/L (7-37); BILIRUBIN,TOTAL 0.4 MG/DL (0.2-1.0); BLOOD UREA NITROGEN 12 MG/DL (7-18); C REACTIVE PROTEIN QUANTITATIV 6.34 MG/DL (0.00-0.30); CALCIUM LEVEL 8.3 MG/DL (8.8-10.2); CARBON DIOXIDE LEVEL 28 MEQ/L (21-32); CHLORIDE LEVEL 105 MEQ/L (98-107); GLOMERULAR FILTRATION RATE > 60.0 (>35); GLUCOSE, FASTING 88 MG/DL (70-100); MAGNESIUM LEVEL 2.3 MG/DL (1.8-2.4); POTASSIUM SERUM 3.9 MEQ/L (3.5-5.1); SODIUM LEVEL 140 MEQ/L (136-145); TOTAL PROTEIN 6.3 GM/DL (6.4-8.2)
[2017-07-06] MEDS: SLF 3 ML SYR IV ×3 (05:44→21:22)
[2017-07-06] MEDS: HEPARIN SOD (PORCINE) 5000 UNITS/ML VIAL SC ×3 (05:44→21:15)
[2017-07-06] MEDS: ASPIRIN 81 MG ENTERIC TAB PO (09:01)
[2017-07-06] MEDS: GABAPENTIN 300 MG CAP PO ×3 (09:01→21:15)
[2017-07-06] MEDS: VANCOMYCIN HCL 1,000 MG, VIAL MATE ADAPTER 1 EACH in D5W 250 ML IV ×2 (09:01→21:14)
[2017-07-06] MEDS: ALLOPURINOL 100 MG TAB PO (09:01)
[2017-07-06] MEDS: NEUTRA-PHOS 1.25 GM PACKET PO ×3 (09:02→21:14)
[2017-07-06] MEDS: PANTOPRAZOLE 40MG TAB (PROTONIX) PO (09:02)
[2017-07-06] MEDS: FAMOTIDINE 20 MG TAB PO ×2 (09:02→21:15)
[2017-07-06 19:21] LABS: VANCOMYCIN LEVEL TROUGH 10.4 UG/ML (10.0-20.0)
[2017-07-06] MEDS: NORTRIPTYLINE 10 MG CAP PO (21:14)
[2017-07-06] MEDS: ATORVASTATIN 20 MG TAB PO (21:14)
[2017-07-06] MEDS: FINASTERIDE 5 MG TAB PO (21:15)
[2017-07-06] MEDS: LATANOPROST 0.005% OPHTH SOLN 2.5 ML OU (21:22)
[2017-07-06] MEDS: traMADol 50 MG TAB PO (21:23)
[2017-07-06] MEDS: SALIVA SUBSTITUTE(MOUTHKOTE) BTL MT (23:25)
[2017-07-07] MEDS: PIPERACILLIN/TAZOBACTAM SOD 3.375 GM in APPROPRIATE DILUENT 1 EA IV ×4 (04:47→22:27)
[2017-07-07] MEDS: SLF 3 ML SYR IV ×3 (04:47→22:27)
[2017-07-07 05:21] LABS: HEMATOCRIT 32.5 % (42.0-52.0); HEMOGLOBIN 10.9 g/dl (14.0-18.0); MEAN CORPUSCULAR HEMOGLOBIN 32.6 pg (27.0-33.0); MEAN CORPUSCULAR HGB CONC 33.5 g/dl (32.0-36.5); MEAN CORPUSCULAR VOLUME 97.3 fl (80.0-96.0); PLATELET COUNT, AUTOMATED 457 10^3/uL (150-450); RED BLOOD COUNT 3.34 10^6/uL (4.30-6.10); RED CELL DISTRIBUTION WIDTH 14.4 % (11.5-14.5); WHITE BLOOD COUNT 13.8 10^3/uL (4.0-10.0)
[2017-07-07] MEDS: VANCOMYCIN HCL 1,000 MG, VIAL MATE ADAPTER 1 EACH in D5W 250 ML IV ×2 (05:33→18:19)
[2017-07-07] MEDS: HEPARIN SOD (PORCINE) 5000 UNITS/ML VIAL SC ×3 (05:33→22:27)
[2017-07-07 05:51] LABS: ALBUMIN 2.3 GM/DL (3.2-5.2); ALBUMIN/GLOBULIN RATIO 0.55 (1.00-1.93); ALKALINE PHOSPHATASE 87 U/L (45-117); ALT/SGPT 42 U/L (12-78); ANION GAP 7 MEQ/L (8-16); AST/SGOT 23 U/L (7-37); BILIRUBIN,TOTAL 0.4 MG/DL (0.2-1.0); BLOOD UREA NITROGEN 13 MG/DL (7-18); C REACTIVE PROTEIN QUANTITATIV 7.26 MG/DL (0.00-0.30); CALCIUM LEVEL 8.4 MG/DL (8.8-10.2); CARBON DIOXIDE LEVEL 27 MEQ/L (21-32); CHLORIDE LEVEL 103 MEQ/L (98-107); CREATININE FOR GFR 0.75 MG/DL (0.70-1.30); GLOMERULAR FILTRATION RATE > 60.0 (>35); GLUCOSE, FASTING 83 MG/DL (70-100); MAGNESIUM LEVEL 2.1 MG/DL (1.8-2.4); POTASSIUM SERUM 3.7 MEQ/L (3.5-5.1); SODIUM LEVEL 137 MEQ/L (136-145); TOTAL PROTEIN 6.5 GM/DL (6.4-8.2)
[2017-07-07] MEDS: FAMOTIDINE 20 MG TAB PO ×2 (08:24→22:26)
[2017-07-07] MEDS: GABAPENTIN 300 MG CAP PO ×3 (08:24→22:26)
[2017-07-07] MEDS: PANTOPRAZOLE 40MG TAB (PROTONIX) PO (08:24)
[2017-07-07] MEDS: ASPIRIN 81 MG ENTERIC TAB PO (08:24)
[2017-07-07] MEDS: NEUTRA-PHOS 1.25 GM PACKET PO ×3 (08:24→22:27)
[2017-07-07] MEDS: ALLOPURINOL 100 MG TAB PO (08:24)
[2017-07-07] MEDS: ACETAMINOPHEN TAB 650MG DOSE (2X325MG) PO (10:44)
[2017-07-07] MEDS: NORTRIPTYLINE 10 MG CAP PO (22:26)
[2017-07-07] MEDS: FINASTERIDE 5 MG TAB PO (22:26)
[2017-07-07] MEDS: LATANOPROST 0.005% OPHTH SOLN 2.5 ML OU (22:26)
[2017-07-07] MEDS: ATORVASTATIN 20 MG TAB PO (22:26)
[2017-07-08] MEDS: PIPERACILLIN/TAZOBACTAM SOD 3.375 GM in APPROPRIATE DILUENT 1 EA IV ×4 (04:50→22:12)
[2017-07-08] MEDS: SLF 3 ML SYR IV ×3 (04:54→22:12)
[2017-07-08] MEDS: HEPARIN SOD (PORCINE) 5000 UNITS/ML VIAL SC ×3 (04:54→22:13)
[2017-07-08 05:36] LABS: HEMOGLOBIN 10.8 g/dl (14.0-18.0); MEAN CORPUSCULAR HEMOGLOBIN 32.1 pg (27.0-33.0); MEAN CORPUSCULAR HGB CONC 32.7 g/dl (32.0-36.5); MEAN CORPUSCULAR VOLUME 98.2 fl (80.0-96.0); PLATELET COUNT, AUTOMATED 470 10^3/uL (150-450); RED BLOOD COUNT 3.36 10^6/uL (4.30-6.10); RED CELL DISTRIBUTION WIDTH 14.4 % (11.5-14.5); WHITE BLOOD COUNT 12.6 10^3/uL (4.0-10.0)
[2017-07-08 06:09] LABS: ALBUMIN 2.3 GM/DL (3.2-5.2); ALBUMIN/GLOBULIN RATIO 0.52 (1.00-1.93); ALKALINE PHOSPHATASE 87 U/L (45-117); ALT/SGPT 45 U/L (12-78); ANION GAP 5 MEQ/L (8-16); AST/SGOT 29 U/L (7-37); BILIRUBIN,TOTAL 0.4 MG/DL (0.2-1.0); BLOOD UREA NITROGEN 14 MG/DL (7-18); C REACTIVE PROTEIN QUANTITATIV 5.97 MG/DL (0.00-0.30); CALCIUM LEVEL 8.4 MG/DL (8.8-10.2); CARBON DIOXIDE LEVEL 28 MEQ/L (21-32); CHLORIDE LEVEL 106 MEQ/L (98-107); CREATININE FOR GFR 0.73 MG/DL (0.70-1.30); GLOMERULAR FILTRATION RATE > 60.0 (>35); GLUCOSE, FASTING 86 MG/DL (70-100); MAGNESIUM LEVEL 2.1 MG/DL (1.8-2.4); POTASSIUM SERUM 3.8 MEQ/L (3.5-5.1); SODIUM LEVEL 139 MEQ/L (136-145); TOTAL PROTEIN 6.7 GM/DL (6.4-8.2); VANCOMYCIN LEVEL TROUGH 14.1 UG/ML (10.0-20.0)
[2017-07-08] MEDS: VANCOMYCIN HCL 1,000 MG, VIAL MATE ADAPTER 1 EACH in D5W 250 ML IV ×2 (06:16→18:32)
[2017-07-08] MEDS: FAMOTIDINE 20 MG TAB PO ×2 (09:29→22:13)
[2017-07-08] MEDS: ALLOPURINOL 100 MG TAB PO (09:29)
[2017-07-08] MEDS: ASPIRIN 81 MG ENTERIC TAB PO (09:29)
[2017-07-08] MEDS: NEUTRA-PHOS 1.25 GM PACKET PO ×3 (09:29→22:12)
[2017-07-08] MEDS: PANTOPRAZOLE 40MG TAB (PROTONIX) PO (09:29)
[2017-07-08] MEDS: GABAPENTIN 300 MG CAP PO ×3 (09:29→22:13)
[2017-07-08] MEDS: LATANOPROST 0.005% OPHTH SOLN 2.5 ML OU (22:11)
[2017-07-08] MEDS: zolPIDEM TARTRATE 5 MG TAB PO (22:12)
[2017-07-08] MEDS: FINASTERIDE 5 MG TAB PO (22:13)
[2017-07-08] MEDS: NORTRIPTYLINE 10 MG CAP PO (22:13)
[2017-07-08] MEDS: ATORVASTATIN 20 MG TAB PO (22:13)
[2017-07-09] MEDS: PIPERACILLIN/TAZOBACTAM SOD 3.375 GM in APPROPRIATE DILUENT 1 EA IV ×4 (05:15→22:15)
[2017-07-09] MEDS: SLF 3 ML SYR IV ×3 (05:18→22:15)
[2017-07-09] MEDS: VANCOMYCIN HCL 1,000 MG, VIAL MATE ADAPTER 1 EACH in D5W 250 ML IV ×2 (06:19→18:24)
[2017-07-09] MEDS: HEPARIN SOD (PORCINE) 5000 UNITS/ML VIAL SC ×3 (06:19→22:15)
[2017-07-09 06:32] LABS: HEMATOCRIT 33.6 % (42.0-52.0); HEMOGLOBIN 11.3 g/dl (14.0-18.0); MEAN CORPUSCULAR HGB CONC 33.6 g/dl (32.0-36.5); MEAN CORPUSCULAR VOLUME 98.2 fl (80.0-96.0); PLATELET COUNT, AUTOMATED 508 10^3/uL (150-450); RED BLOOD COUNT 3.42 10^6/uL (4.30-6.10); RED CELL DISTRIBUTION WIDTH 14.3 % (11.5-14.5); WHITE BLOOD COUNT 12.1 10^3/uL (4.0-10.0)
[2017-07-09 07:01] LABS: ALBUMIN 2.4 GM/DL (3.2-5.2); ALBUMIN/GLOBULIN RATIO 0.53 (1.00-1.93); ALKALINE PHOSPHATASE 87 U/L (45-117); ALT/SGPT 58 U/L (12-78); ANION GAP 6 MEQ/L (8-16); AST/SGOT 38 U/L (7-37); BILIRUBIN,TOTAL 0.5 MG/DL (0.2-1.0); BLOOD UREA NITROGEN 13 MG/DL (7-18); C REACTIVE PROTEIN QUANTITATIV 5.41 MG/DL (0.00-0.30); CALCIUM LEVEL 8.5 MG/DL (8.8-10.2); CARBON DIOXIDE LEVEL 28 MEQ/L (21-32); CHLORIDE LEVEL 104 MEQ/L (98-107); CREATININE FOR GFR 0.81 MG/DL (0.70-1.30); GLOMERULAR FILTRATION RATE > 60.0 (>35); GLUCOSE, FASTING 88 MG/DL (70-100); MAGNESIUM LEVEL 1.9 MG/DL (1.8-2.4); POTASSIUM SERUM 3.8 MEQ/L (3.5-5.1); SODIUM LEVEL 138 MEQ/L (136-145); TOTAL PROTEIN 6.9 GM/DL (6.4-8.2)
[2017-07-09] MEDS: NEUTRA-PHOS 1.25 GM PACKET PO ×3 (09:38→22:16)
[2017-07-09] MEDS: PANTOPRAZOLE 40MG TAB (PROTONIX) PO (09:38)
[2017-07-09] MEDS: ASPIRIN 81 MG ENTERIC TAB PO (09:38)
[2017-07-09] MEDS: ALLOPURINOL 100 MG TAB PO (09:38)
[2017-07-09] MEDS: FAMOTIDINE 20 MG TAB PO ×2 (09:38→22:16)
[2017-07-09] MEDS: GABAPENTIN 300 MG CAP PO ×3 (09:38→22:16)
[2017-07-09] MEDS: NORTRIPTYLINE 10 MG CAP PO (22:15)
[2017-07-09] MEDS: LATANOPROST 0.005% OPHTH SOLN 2.5 ML OU (22:15)
[2017-07-09] MEDS: zolPIDEM TARTRATE 5 MG TAB PO (22:15)
[2017-07-09] MEDS: ATORVASTATIN 20 MG TAB PO (22:16)
[2017-07-09] MEDS: FINASTERIDE 5 MG TAB PO (22:16)
[2017-07-10] MEDS: PIPERACILLIN/TAZOBACTAM SOD 3.375 GM in APPROPRIATE DILUENT 1 EA IV ×4 (05:26→22:15)
[2017-07-10] MEDS: SLF 3 ML SYR IV ×3 (05:26→22:16)
[2017-07-10 05:52] LABS: HEMATOCRIT 35.2 % (42.0-52.0); HEMOGLOBIN 11.5 g/dl (14.0-18.0); MEAN CORPUSCULAR HEMOGLOBIN 32.5 pg (27.0-33.0); MEAN CORPUSCULAR HGB CONC 32.7 g/dl (32.0-36.5); MEAN CORPUSCULAR VOLUME 99.4 fl (80.0-96.0); PLATELET COUNT, AUTOMATED 502 10^3/uL (150-450); RED BLOOD COUNT 3.54 10^6/uL (4.30-6.10); RED CELL DISTRIBUTION WIDTH 14.2 % (11.5-14.5)
[2017-07-10] MEDS: HEPARIN SOD (PORCINE) 5000 UNITS/ML VIAL SC ×3 (06:02→22:16)
[2017-07-10] MEDS: VANCOMYCIN HCL 1,000 MG, VIAL MATE ADAPTER 1 EACH in D5W 250 ML IV ×2 (06:03→18:17)
[2017-07-10 06:29] LABS: ALBUMIN 2.4 GM/DL (3.2-5.2); ALBUMIN/GLOBULIN RATIO 0.51 (1.00-1.93); ALKALINE PHOSPHATASE 91 U/L (45-117); ALT/SGPT 68 U/L (12-78); ANION GAP 7 MEQ/L (8-16); AST/SGOT 45 U/L (7-37); BILIRUBIN,TOTAL 0.4 MG/DL (0.2-1.0); BLOOD UREA NITROGEN 14 MG/DL (7-18); C REACTIVE PROTEIN QUANTITATIV 5.59 MG/DL (0.00-0.30); CARBON DIOXIDE LEVEL 27 MEQ/L (21-32); CHLORIDE LEVEL 103 MEQ/L (98-107); CREATININE FOR GFR 0.76 MG/DL (0.70-1.30); GLOMERULAR FILTRATION RATE > 60.0 (>35); GLUCOSE, FASTING 88 MG/DL (70-100); POTASSIUM SERUM 3.8 MEQ/L (3.5-5.1); SODIUM LEVEL 137 MEQ/L (136-145); TOTAL PROTEIN 7.1 GM/DL (6.4-8.2)
[2017-07-10] MEDS: NEUTRA-PHOS 1.25 GM PACKET PO ×3 (08:17→20:42)
[2017-07-10] MEDS: FAMOTIDINE 20 MG TAB PO ×2 (08:18→20:49)
[2017-07-10] MEDS: GABAPENTIN 300 MG CAP PO ×3 (08:18→20:45)
[2017-07-10] MEDS: ALLOPURINOL 100 MG TAB PO (08:18)
[2017-07-10] MEDS: ASPIRIN 81 MG ENTERIC TAB PO (08:18)
[2017-07-10] MEDS: PANTOPRAZOLE 40MG TAB (PROTONIX) PO (08:18)
[2017-07-10] MEDS: ATORVASTATIN 20 MG TAB PO (20:43)
[2017-07-10] MEDS: FINASTERIDE 5 MG TAB PO (20:48)
[2017-07-10] MEDS: NORTRIPTYLINE 10 MG CAP PO (20:48)
[2017-07-10] MEDS: LATANOPROST 0.005% OPHTH SOLN 2.5 ML OU (20:49)
[2017-07-11] MEDS: CEPACOL LOZENGE PO (01:48)
[2017-07-11] MEDS: traMADol 50 MG TAB PO (01:49)
[2017-07-11] MEDS: PIPERACILLIN/TAZOBACTAM SOD 3.375 GM in APPROPRIATE DILUENT 1 EA IV ×4 (04:42→22:30)
[2017-07-11] MEDS: HEPARIN SOD (PORCINE) 5000 UNITS/ML VIAL SC ×3 (05:41→22:30)
[2017-07-11] MEDS: SLF 3 ML SYR IV ×3 (05:41→22:30)
[2017-07-11] MEDS: VANCOMYCIN HCL 1,000 MG, VIAL MATE ADAPTER 1 EACH in D5W 250 ML IV ×2 (05:41→17:54)
[2017-07-11 07:46] LABS: BASO # 0.1 10^3/uL (0.0-0.2); BASO % 0.6 % (0.0-1.0); EOS # 0.2 10^3/uL (0.0-0.50); EOS % 1.7 % (0.0-3.0); HEMATOCRIT 33.7 % (42.0-52.0); HEMOGLOBIN 11.3 g/dl (14.0-18.0); IMMATURE GRANULOCYTE % 0.4 % (0-3.0); LYMPH # 2.2 10^3/uL (1.5-4.5); LYMPH % 18.3 % (24.0-44.0); MEAN CORPUSCULAR HEMOGLOBIN 32.8 pg (27.0-33.0); MEAN CORPUSCULAR HGB CONC 33.5 g/dl (32.0-36.5); NEUTROPHILS # 8.5 10^3/uL (1.8-7.7); PLATELET COUNT, AUTOMATED 494 10^3/uL (150-450); RED BLOOD COUNT 3.44 10^6/uL (4.30-6.10); RED CELL DISTRIBUTION WIDTH 14.2 % (11.5-14.5)
[2017-07-11 08:06] LABS: C REACTIVE PROTEIN QUANTITATIV 4.85 MG/DL (0.00-0.30)
[2017-07-11 08:09] LABS: ALBUMIN 2.5 GM/DL (3.2-5.2); ALBUMIN/GLOBULIN RATIO 0.66 (1.00-1.93); ALKALINE PHOSPHATASE 90 U/L (45-117); ALT/SGPT 70 U/L (12-78); ANION GAP 5 MEQ/L (8-16); AST/SGOT 43 U/L (7-37); BILIRUBIN,TOTAL 0.4 MG/DL (0.2-1.0); BLOOD UREA NITROGEN 15 MG/DL (7-18); CALCIUM LEVEL 8.7 MG/DL (8.8-10.2); CARBON DIOXIDE LEVEL 29 MEQ/L (21-32); CHLORIDE LEVEL 103 MEQ/L (98-107); CREATININE FOR GFR 0.83 MG/DL (0.70-1.30); GLOMERULAR FILTRATION RATE > 60.0 (>35); GLUCOSE, FASTING 97 MG/DL (70-100); MAGNESIUM LEVEL 1.9 MG/DL (1.8-2.4); POTASSIUM SERUM 4.4 MEQ/L (3.5-5.1); SODIUM LEVEL 137 MEQ/L (136-145); TOTAL PROTEIN 6.3 GM/DL (6.4-8.2)
[2017-07-11] MEDS: ALLOPURINOL 100 MG TAB PO (08:16)
[2017-07-11] MEDS: ASPIRIN 81 MG ENTERIC TAB PO (08:16)
[2017-07-11] MEDS: FAMOTIDINE 20 MG TAB PO ×2 (08:16→22:29)
[2017-07-11] MEDS: GABAPENTIN 300 MG CAP PO ×3 (08:16→22:30)
[2017-07-11] MEDS: NEUTRA-PHOS 1.25 GM PACKET PO ×3 (08:17→22:29)
[2017-07-11] MEDS: PANTOPRAZOLE 40MG TAB (PROTONIX) PO (08:17)
[2017-07-11] MEDS: NORTRIPTYLINE 10 MG CAP PO (22:29)
[2017-07-11] MEDS: ACETAMINOPHEN TAB 650MG DOSE (2X325MG) PO (22:29)
[2017-07-11] MEDS: zolPIDEM TARTRATE 5 MG TAB PO (22:29)
[2017-07-11] MEDS: SENOKOT S TAB PO (22:29)
[2017-07-11] MEDS: ATORVASTATIN 20 MG TAB PO (22:30)
[2017-07-11] MEDS: FINASTERIDE 5 MG TAB PO (22:31)
[2017-07-11] MEDS: LATANOPROST 0.005% OPHTH SOLN 2.5 ML OU (22:31)
[2017-07-12] MEDS: SLF 3 ML SYR IV ×3 (05:32→22:21)
[2017-07-12] MEDS: HEPARIN SOD (PORCINE) 5000 UNITS/ML VIAL SC ×3 (05:32→22:19)
[2017-07-12] MEDS: PIPERACILLIN/TAZOBACTAM SOD 3.375 GM in APPROPRIATE DILUENT 1 EA IV ×4 (05:32→22:21)
[2017-07-12] MEDS: VANCOMYCIN HCL 1,000 MG, VIAL MATE ADAPTER 1 EACH in D5W 250 ML IV ×2 (05:32→17:54)
[2017-07-12 05:40] LABS: BASO # 0.1 10^3/uL (0.0-0.2); BASO % 0.4 % (0.0-1.0); EOS # 0.3 10^3/uL (0.0-0.50); EOS % 2.2 % (0.0-3.0); HEMOGLOBIN 12.9 g/dl (14.0-18.0); IMMATURE GRANULOCYTE % 0.6 % (0-3.0); LYMPH % 17.6 % (24.0-44.0); MEAN CORPUSCULAR HEMOGLOBIN 32.8 pg (27.0-33.0); MEAN CORPUSCULAR HGB CONC 33.1 g/dl (32.0-36.5); MEAN CORPUSCULAR VOLUME 99.2 fl (80.0-96.0); MONO % 8.8 % (0.0-5.0); NEUTROPHILS # 8.2 10^3/uL (1.8-7.7); NEUTROPHILS % 70.4 % (36.0-66.0); PLATELET COUNT, AUTOMATED 550 10^3/uL (150-450); RED BLOOD COUNT 3.93 10^6/uL (4.30-6.10); RED CELL DISTRIBUTION WIDTH 14.1 % (11.5-14.5); WHITE BLOOD COUNT 11.6 10^3/uL (4.0-10.0)
[2017-07-12 07:48] LABS: ALBUMIN 2.8 GM/DL (3.2-5.2); ALBUMIN/GLOBULIN RATIO 0.55 (1.00-1.93); ALKALINE PHOSPHATASE 101 U/L (45-117); ALT/SGPT 74 U/L (12-78); ANION GAP 5 MEQ/L (8-16); AST/SGOT 41 U/L (7-37); BILIRUBIN,TOTAL 0.4 MG/DL (0.2-1.0); BLOOD UREA NITROGEN 16 MG/DL (7-18); C REACTIVE PROTEIN QUANTITATIV 5.93 MG/DL (0.00-0.30); CALCIUM LEVEL 9.5 MG/DL (8.8-10.2); CARBON DIOXIDE LEVEL 31 MEQ/L (21-32); CHLORIDE LEVEL 104 MEQ/L (98-107); CREATININE FOR GFR 0.85 MG/DL (0.70-1.30); GLOMERULAR FILTRATION RATE > 60.0 (>35); GLUCOSE, FASTING 93 MG/DL (70-100); MAGNESIUM LEVEL 2.2 MG/DL (1.8-2.4); POTASSIUM SERUM 4.4 MEQ/L (3.5-5.1); SODIUM LEVEL 140 MEQ/L (136-145); TOTAL PROTEIN 7.9 GM/DL (6.4-8.2)
[2017-07-12] MEDS: ALLOPURINOL 100 MG TAB PO (08:44)
[2017-07-12] MEDS: NEUTRA-PHOS 1.25 GM PACKET PO ×3 (08:44→22:20)
[2017-07-12] MEDS: ASPIRIN 81 MG ENTERIC TAB PO (08:44)
[2017-07-12] MEDS: PANTOPRAZOLE 40MG TAB (PROTONIX) PO (08:44)
[2017-07-12] MEDS: GABAPENTIN 300 MG CAP PO ×3 (08:45→22:20)
[2017-07-12] MEDS: FAMOTIDINE 20 MG TAB PO ×2 (08:45→22:20)
[2017-07-12] MEDS: LACTULOSE 20 GM/30 ML SYRUP UD PO (11:30)
[2017-07-12] MEDS: ACETAMINOPHEN TAB 650MG DOSE (2X325MG) PO (14:54)
[2017-07-12] MEDS: LATANOPROST 0.005% OPHTH SOLN 2.5 ML OU (22:20)
[2017-07-12] MEDS: zolPIDEM TARTRATE 5 MG TAB PO (22:20)
[2017-07-12] MEDS: ATORVASTATIN 20 MG TAB PO (22:20)
[2017-07-12] MEDS: NORTRIPTYLINE 10 MG CAP PO (22:20)
[2017-07-12] MEDS: FINASTERIDE 5 MG TAB PO (22:21)
[2017-07-13] MEDS: HEPARIN SOD (PORCINE) 5000 UNITS/ML VIAL SC ×3 (05:06→22:20)
[2017-07-13] MEDS: PIPERACILLIN/TAZOBACTAM SOD 3.375 GM in APPROPRIATE DILUENT 1 EA IV ×4 (05:07→22:19)
[2017-07-13] MEDS: SLF 3 ML SYR IV ×3 (05:08→22:21)
[2017-07-13 05:41] LABS: BASO # 0.1 10^3/uL (0.0-0.2); BASO % 0.6 % (0.0-1.0); EOS # 0.3 10^3/uL (0.0-0.50); EOS % 2.6 % (0.0-3.0); HEMATOCRIT 35.3 % (42.0-52.0); HEMOGLOBIN 11.7 g/dl (14.0-18.0); IMMATURE GRANULOCYTE % 0.8 % (0-3.0); LYMPH # 1.6 10^3/uL (1.5-4.5); LYMPH % 14.7 % (24.0-44.0); MEAN CORPUSCULAR HEMOGLOBIN 32.1 pg (27.0-33.0); MEAN CORPUSCULAR HGB CONC 33.1 g/dl (32.0-36.5); MONO % 9.2 % (0.0-5.0); NEUTROPHILS # 7.7 10^3/uL (1.8-7.7); NEUTROPHILS % 72.1 % (36.0-66.0); PLATELET COUNT, AUTOMATED 531 10^3/uL (150-450); RED BLOOD COUNT 3.64 10^6/uL (4.30-6.10); WHITE BLOOD COUNT 10.6 10^3/uL (4.0-10.0)
[2017-07-13] MEDS: VANCOMYCIN HCL 1,000 MG, VIAL MATE ADAPTER 1 EACH in D5W 250 ML IV ×2 (05:44→17:35)
[2017-07-13 05:58] LABS: ALBUMIN 2.6 GM/DL (3.2-5.2); ALBUMIN/GLOBULIN RATIO 0.57 (1.00-1.93); ALKALINE PHOSPHATASE 88 U/L (45-117); ALT/SGPT 62 U/L (12-78); ANION GAP 7 MEQ/L (8-16); AST/SGOT 30 U/L (7-37); BILIRUBIN,TOTAL 0.4 MG/DL (0.2-1.0); BLOOD UREA NITROGEN 15 MG/DL (7-18); CALCIUM LEVEL 8.9 MG/DL (8.8-10.2); CARBON DIOXIDE LEVEL 28 MEQ/L (21-32); CHLORIDE LEVEL 104 MEQ/L (98-107); GLOMERULAR FILTRATION RATE > 60.0 (>35); GLUCOSE, FASTING 87 MG/DL (70-100); MAGNESIUM LEVEL 2.1 MG/DL (1.8-2.4); POTASSIUM SERUM 3.8 MEQ/L (3.5-5.1); SODIUM LEVEL 139 MEQ/L (136-145); TOTAL PROTEIN 7.2 GM/DL (6.4-8.2); VANCOMYCIN LEVEL TROUGH 16.6 UG/ML (10.0-20.0)
[2017-07-13] MEDS ORDERED: MIDAZOLAM INJ 2 MG/2 ML VIAL (J2250) As Ordered (07:49)
[2017-07-13] MEDS ORDERED: fentaNYL 100 MCG/2 ML INJECTION (J3010) As Ordered ×3 (07:49→10:00)
[2017-07-13] MEDS ORDERED: ROCURONIUM BROMIDE 50 MG/5 ML VIAL As Ordered (07:49)
[2017-07-13] MEDS ORDERED: LIDOCAINE 2% INJ 100 MG/5 ML SDV (FOR ANES.) As Ordered (07:49)
[2017-07-13] MEDS ORDERED: PROPOFOL 200 MG/20 ML VIAL As Ordered (07:49)
[2017-07-13] MEDS ORDERED: dexameTHASONE 4 MG/ML 1ML VIAL (J1100) As Ordered (08:38)
[2017-07-13] MEDS: BUPIVACAINE HCL 0.25% 30 ML VIAL As Ordered ×2 (08:43→09:58)
[2017-07-13] MEDS ORDERED: GLYCOPYRROLATE INJ 0.2 MG/ML 2 ML VIAL As Ordered (09:13)
[2017-07-13] MEDS ORDERED: NEOSTIGMINE 10 MG/10 ML VIAL (J2710) As Ordered ×2 (09:13)
[2017-07-13] MEDS ORDERED: ONDANSETRON 4MG/2ML VIAL (J2405) As Ordered (09:17)
[2017-07-13] MEDS: LR 1,000 ML IV (10:15)
[2017-07-13] MEDS ORDERED: ONDANSETRON 4MG/2ML VIAL (J2405) IV (10:15)
[2017-07-13] MEDS ORDERED: fentaNYL 100 MCG/2 ML INJECTION (J3010) IV (10:15)
[2017-07-13] MEDS ORDERED: HYDROmorphone HCL 1 MG/ML SYRINGE (J1170) IV (10:15)
[2017-07-13] MEDS ORDERED: KETOROLAC 30 MG/ML VIAL (J1885) IV (10:30)
[2017-07-13] MEDS ORDERED: PERCOCET 5MG/325MG TAB As Ordered (10:39)
[2017-07-13] MEDS: PERCOCET 5MG/325MG TAB PO (10:45)
[2017-07-13] MEDS: PANTOPRAZOLE 40MG TAB (PROTONIX) PO (11:34)
[2017-07-13] MEDS: ASPIRIN 81 MG ENTERIC TAB PO (11:34)
[2017-07-13] MEDS: GABAPENTIN 300 MG CAP PO ×3 (11:35→22:20)
[2017-07-13] MEDS: FAMOTIDINE 20 MG TAB PO ×2 (11:35→22:20)
[2017-07-13] MEDS: ALLOPURINOL 100 MG TAB PO (11:35)
[2017-07-13] MEDS: NEUTRA-PHOS 1.25 GM PACKET PO ×3 (11:35→22:21)
[2017-07-13] MEDS: ACETAMINOPHEN TAB 650MG DOSE (2X325MG) PO (22:19)
[2017-07-13] MEDS: zolPIDEM TARTRATE 5 MG TAB PO (22:20)
[2017-07-13] MEDS: FINASTERIDE 5 MG TAB PO (22:20)
[2017-07-13] MEDS: NORTRIPTYLINE 10 MG CAP PO (22:21)
[2017-07-13] MEDS: LATANOPROST 0.005% OPHTH SOLN 2.5 ML OU (22:21)
[2017-07-13] MEDS: ATORVASTATIN 20 MG TAB PO (22:21)
[2017-07-14] MEDS: traMADol 50 MG TAB PO (01:20)
[2017-07-14] MEDS: HEPARIN SOD (PORCINE) 5000 UNITS/ML VIAL SC ×3 (05:21→21:09)
[2017-07-14] MEDS: PIPERACILLIN/TAZOBACTAM SOD 3.375 GM in APPROPRIATE DILUENT 1 EA IV ×2 (05:21→11:08)
[2017-07-14] MEDS: SLF 3 ML SYR IV ×3 (05:22→21:13)
[2017-07-14 05:48] LABS: BASO # 0.1 10^3/uL (0.0-0.2); BASO % 0.4 % (0.0-1.0); EOS # 0.2 10^3/uL (0.0-0.50); HEMATOCRIT 33.5 % (42.0-52.0); HEMOGLOBIN 11.1 g/dl (14.0-18.0); IMMATURE GRANULOCYTE % 0.6 % (0-3.0); LYMPH # 2.1 10^3/uL (1.5-4.5); LYMPH % 17.9 % (24.0-44.0); MEAN CORPUSCULAR HEMOGLOBIN 32.4 pg (27.0-33.0); MEAN CORPUSCULAR HGB CONC 33.1 g/dl (32.0-36.5); MEAN CORPUSCULAR VOLUME 97.7 fl (80.0-96.0); MONO # 1.3 10^3/uL (0.0-0.8); MONO % 10.7 % (0.0-5.0); NEUTROPHILS % 68.4 % (36.0-66.0); PLATELET COUNT, AUTOMATED 511 10^3/uL (150-450); RED BLOOD COUNT 3.43 10^6/uL (4.30-6.10); WHITE BLOOD COUNT 11.7 10^3/uL (4.0-10.0)
[2017-07-14] MEDS: VANCOMYCIN HCL 1,000 MG, VIAL MATE ADAPTER 1 EACH in D5W 250 ML IV (06:05)
[2017-07-14 06:22] LABS: ALBUMIN 2.5 GM/DL (3.2-5.2); ALBUMIN/GLOBULIN RATIO 0.56 (1.00-1.93); ALKALINE PHOSPHATASE 87 U/L (45-117); ALT/SGPT 51 U/L (12-78); ANION GAP 7 MEQ/L (8-16); AST/SGOT 20 U/L (7-37); BILIRUBIN,TOTAL 0.3 MG/DL (0.2-1.0); BLOOD UREA NITROGEN 14 MG/DL (7-18); CALCIUM LEVEL 8.8 MG/DL (8.8-10.2); CARBON DIOXIDE LEVEL 29 MEQ/L (21-32); CHLORIDE LEVEL 104 MEQ/L (98-107); CREATININE FOR GFR 0.65 MG/DL (0.70-1.30); GLOMERULAR FILTRATION RATE > 60.0 (>35); GLUCOSE, FASTING 92 MG/DL (70-100); MAGNESIUM LEVEL 2.2 MG/DL (1.8-2.4); POTASSIUM SERUM 3.7 MEQ/L (3.5-5.1); SODIUM LEVEL 140 MEQ/L (136-145)
[2017-07-14 07:27] LABS: C REACTIVE PROTEIN QUANTITATIV 4.18 MG/DL (0.00-0.30)
[2017-07-14] MEDS: GABAPENTIN 300 MG CAP PO ×3 (08:44→21:10)
[2017-07-14] MEDS: ASPIRIN 81 MG ENTERIC TAB PO (08:45)
[2017-07-14] MEDS: ALLOPURINOL 100 MG TAB PO (08:45)
[2017-07-14] MEDS: NEUTRA-PHOS 1.25 GM PACKET PO ×3 (08:45→21:09)
[2017-07-14] MEDS: PANTOPRAZOLE 40MG TAB (PROTONIX) PO (08:45)
[2017-07-14] MEDS: ACETAMINOPHEN TAB 650MG DOSE (2X325MG) PO (08:45)
[2017-07-14] MEDS: FAMOTIDINE 20 MG TAB PO ×2 (08:45→21:09)
[2017-07-14] MEDS: NORTRIPTYLINE 10 MG CAP PO (21:09)
[2017-07-14] MEDS: ATORVASTATIN 20 MG TAB PO (21:09)
[2017-07-14] MEDS: FINASTERIDE 5 MG TAB PO (21:10)
[2017-07-14] MEDS: LATANOPROST 0.005% OPHTH SOLN 2.5 ML OU (21:13)
[2017-07-15] MEDS: SLF 3 ML SYR IV ×2 (06:14→13:46)
[2017-07-15] MEDS: HEPARIN SOD (PORCINE) 5000 UNITS/ML VIAL SC ×2 (06:15→13:46)
[2017-07-15 06:58] LABS: BASO # 0.1 10^3/uL (0.0-0.2); BASO % 0.5 % (0.0-1.0); EOS # 0.4 10^3/uL (0.0-0.50); EOS % 3.9 % (0.0-3.0); HEMATOCRIT 35.3 % (42.0-52.0); HEMOGLOBIN 11.9 g/dl (14.0-18.0); IMMATURE GRANULOCYTE % 0.3 % (0-3.0); LYMPH # 2.7 10^3/uL (1.5-4.5); LYMPH % 27.5 % (24.0-44.0); MEAN CORPUSCULAR HEMOGLOBIN 33.1 pg (27.0-33.0); MEAN CORPUSCULAR HGB CONC 33.7 g/dl (32.0-36.5); MEAN CORPUSCULAR VOLUME 98.3 fl (80.0-96.0); MONO # 1.2 10^3/uL (0.0-0.8); MONO % 11.8 % (0.0-5.0); NEUTROPHILS # 5.5 10^3/uL (1.8-7.7); PLATELET COUNT, AUTOMATED 468 10^3/uL (150-450); RED BLOOD COUNT 3.59 10^6/uL (4.30-6.10); WHITE BLOOD COUNT 9.8 10^3/uL (4.0-10.0)
[2017-07-15 07:42] LABS: ALBUMIN 2.6 GM/DL (3.2-5.2); ALBUMIN/GLOBULIN RATIO 0.65 (1.00-1.93); ALKALINE PHOSPHATASE 89 U/L (45-117); ALT/SGPT 49 U/L (12-78); ANION GAP 7 MEQ/L (8-16); AST/SGOT 23 U/L (7-37); BILIRUBIN,TOTAL 0.4 MG/DL (0.2-1.0); BLOOD UREA NITROGEN 14 MG/DL (7-18); C REACTIVE PROTEIN QUANTITATIV 5.23 MG/DL (0.00-0.30); CALCIUM LEVEL 8.9 MG/DL (8.8-10.2); CARBON DIOXIDE LEVEL 30 MEQ/L (21-32); CHLORIDE LEVEL 103 MEQ/L (98-107); CREATININE FOR GFR 0.68 MG/DL (0.70-1.30); GLOMERULAR FILTRATION RATE > 60.0 (>35); GLUCOSE, FASTING 86 MG/DL (70-100); MAGNESIUM LEVEL 2.1 MG/DL (1.8-2.4); POTASSIUM SERUM 4.1 MEQ/L (3.5-5.1); SODIUM LEVEL 140 MEQ/L (136-145); TOTAL PROTEIN 6.6 GM/DL (6.4-8.2)
[2017-07-15] MEDS: NEUTRA-PHOS 1.25 GM PACKET PO (08:57)
[2017-07-15] MEDS: PANTOPRAZOLE 40MG TAB (PROTONIX) PO (08:58)
[2017-07-15] MEDS: ASPIRIN 81 MG ENTERIC TAB PO (08:58)
[2017-07-15] MEDS: ALLOPURINOL 100 MG TAB PO (08:58)
[2017-07-15] MEDS: SENOKOT S TAB PO (08:58)
[2017-07-15] MEDS: GABAPENTIN 300 MG CAP PO (08:58)
[2017-07-15] MEDS: FAMOTIDINE 20 MG TAB PO (08:58)
== END 2017-07-15 14:56 | disposition home or self-care (01) | DRG 854 ==
LOC: M MSPAV 07-07 17:40 → M MS4PR 07-14 22:20 → M ED 08:06 → M ED INP 13:31 → M PCU 16:28
PROVIDERS: Internal Medicine
PROC: 0VT90ZZ Resection of Right Testis, Open Approach (ICD-10-PCS; principal; 2017-07-13 08:00)
PROC: 0VT Male Reproductive System, Resection (ICD-10-PCS; 2017-07-13 08:00)
DX: A41.9 Sepsis, unspecified organism (principal); N17.9 Acute kidney failure, unspecified; N45.2 Orchitis; R65.20 Severe sepsis without septic shock; E78.5 Hyperlipidemia, unspecified; N40.1 Benign prostatic hyperplasia with lower urinary tract symptoms; G62.9 Polyneuropathy, unspecified; K21.9 Gastro-esophageal reflux disease without esophagitis; N13.5 Crossing vessel and stricture of ureter without hydronephrosis; Z79.82 Long term (current) use of aspirin; Z79.899 Other long term (current) drug therapy; Z90.49 Acquired absence of other specified parts of digestive tract

== ENCOUNTER 2017-10-19 13:11 | Inpatient (IN) | payer MEDICARE, OTHER ==
[2017-10-19] MEDS: KETOROLAC 30 MG/ML VIAL (J1885) IV (14:21)
[2017-10-19] MEDS: NS 1,000 ML IV (14:21)
[2017-10-19] MEDS: ONDANSETRON 4MG/2ML VIAL (J2405) IV ×2 (14:21→16:04)
[2017-10-19 14:25] LABS: BASO % 0.2 % (0.0-1.0); EOS % 0.1 % (0.0-3.0); HEMATOCRIT 39.6 % (42.0-52.0); HEMOGLOBIN 13.8 g/dl (13.5-17.5); IMMATURE GRANULOCYTE % 0.4 % (0-3.0); LYMPH # 1.2 10^3/uL (1.5-4.5); LYMPH % 8.4 % (24.0-44.0); MEAN CORPUSCULAR HEMOGLOBIN 33.3 pg (27.0-33.0); MEAN CORPUSCULAR HGB CONC 34.8 g/dl (32.0-36.5); MEAN CORPUSCULAR VOLUME 95.7 fl (80.0-96.0); MONO # 1.1 10^3/uL (0.0-0.8); MONO % 7.6 % (0.0-5.0); NEUTROPHILS # 11.6 10^3/uL (1.8-7.7); NEUTROPHILS % 83.3 % (36.0-66.0); PLATELET COUNT, AUTOMATED 301 10^3/uL (150-450); RED BLOOD COUNT 4.14 10^6/uL (4.30-6.10); RED CELL DISTRIBUTION WIDTH 14.2 % (11.5-14.5); WHITE BLOOD COUNT 13.9 10^3/uL (4.0-10.0)
[2017-10-19 14:34] LABS: KETONE, URINE AUTO RFX TRACE mg/dL (NEGATIVE); MUCUS, URINE RFX SMALL (NEGATIVE); NITRITE, URINE AUTO RFX NEGATIVE (NEGATIVE); RBC, URINE AUTO RFX 29 /HPF (0-3); SPECIFIC GRAVITY UR AUTO RFX 1.025 (1.002-1.035); SQUAM EPITHELIAL CELL UR AURFX 1 /HPF (0-6)
[2017-10-19 14:38] LABS: LEUKOCYTE ESTERASE UR AUTO RFX 2+ (NEGATIVE); WBC, URINE AUTO RFX 57 /HPF (0-3)
[2017-10-19 14:59] LABS: ALBUMIN/GLOBULIN RATIO 0.91 (1.00-1.93); ALKALINE PHOSPHATASE 87 U/L (45-117); ALT/SGPT 18 U/L (12-78); ANION GAP 8 MEQ/L (8-16); AST/SGOT 17 U/L (7-37); BILIRUBIN,TOTAL 0.7 MG/DL (0.2-1.0); BLOOD UREA NITROGEN 19 MG/DL (7-18); CALCIUM LEVEL 9.2 MG/DL (8.8-10.2); CARBON DIOXIDE LEVEL 28 MEQ/L (21-32); CHLORIDE LEVEL 105 MEQ/L (98-107); CREATININE FOR GFR 1.16 MG/DL (0.70-1.30); GLOMERULAR FILTRATION RATE > 60.0 (>35); GLUCOSE, FASTING 117 MG/DL (70-100); LIPASE 115 U/L (73-393); POTASSIUM SERUM 4.3 MEQ/L (3.5-5.1); SODIUM LEVEL 141 MEQ/L (136-145); TOTAL PROTEIN 8.4 GM/DL (6.4-8.2)
[2017-10-19] MEDS: MORPHINE 4 MG/ML 1ML VIAL/SYRINGE (J2270) IV (16:04)
[2017-10-19] MEDS ORDERED: ONDANSETRON 4MG/2ML VIAL (J2405) IV (16:30)
[2017-10-19] MEDS ORDERED: MORPHINE 2 MG/ML 1ML SYRINGE (J2270) IV (16:30)
[2017-10-19] MEDS: D5W/0.45% SODIUM CHLORIDE 1,000 ML IV (18:27)
[2017-10-19] MEDS: cefTRIAXone SOD 1 GM in D5W MINI-BAG PLUS 50 ML IV (18:27)
[2017-10-19] MEDS: TAMSULOSIN 0.4 MG CAP PO (18:27)
[2017-10-19] MEDS: ATORVASTATIN 20 MG TAB PO (21:28)
[2017-10-19] MEDS: FINASTERIDE 5 MG TAB PO (21:28)
[2017-10-19] MEDS: LATANOPROST 0.005% OPHTH SOLN 2.5 ML OU (21:31)
[2017-10-19] MEDS: oxyCODONE 5MG TAB PO (21:31)
[2017-10-20] MEDS: D5W/0.45% SODIUM CHLORIDE 1,000 ML IV ×3 (01:47→16:30)
[2017-10-20] MEDS: oxyCODONE 5MG TAB PO (05:20)
[2017-10-20 07:05] LABS: HEMATOCRIT 34.9 % (42.0-52.0); MEAN CORPUSCULAR HEMOGLOBIN 32.7 pg (27.0-33.0); MEAN CORPUSCULAR HGB CONC 33.5 g/dl (32.0-36.5); MEAN CORPUSCULAR VOLUME 97.5 fl (80.0-96.0); PLATELET COUNT, AUTOMATED 244 10^3/uL (150-450); RED BLOOD COUNT 3.58 10^6/uL (4.30-6.10); RED CELL DISTRIBUTION WIDTH 14.2 % (11.5-14.5); WHITE BLOOD COUNT 10.7 10^3/uL (4.0-10.0)
[2017-10-20 07:13] LABS: HEMOGLOBIN 11.7 g/dl (13.5-17.5)
[2017-10-20 07:15] LABS: ANION GAP 7 MEQ/L (8-16); BLOOD UREA NITROGEN 22 MG/DL (7-18); CALCIUM LEVEL 8.4 MG/DL (8.8-10.2); CARBON DIOXIDE LEVEL 28 MEQ/L (21-32); CHLORIDE LEVEL 107 MEQ/L (98-107); CREATININE FOR GFR 0.81 MG/DL (0.70-1.30); GLOMERULAR FILTRATION RATE > 60.0 (>35); GLUCOSE, FASTING 95 MG/DL (70-100); POTASSIUM SERUM 4.2 MEQ/L (3.5-5.1); SODIUM LEVEL 142 MEQ/L (136-145)
[2017-10-20] MEDS: ALLOPURINOL 100 MG TAB PO (08:14)
[2017-10-20] MEDS: ASPIRIN 81 MG CHEW TABLET PO (08:15)
[2017-10-20] MEDS: TAMSULOSIN 0.4 MG CAP PO (08:15)
[2017-10-20] MEDS: MULTIVITAMINS/MINERALS THERAP 1 TAB PO (08:15)
[2017-10-20] MEDS: PANTOPRAZOLE 40MG TAB (PROTONIX) PO (08:15)
[2017-10-20] MEDS: DOCUSATE SODIUM 100 MG CAP PO (08:15)
[2017-10-20] MEDS ORDERED: fentaNYL 250 MCG/5 ML INJECTION (J3010) As Ordered (11:11)
[2017-10-20] MEDS ORDERED: dexameTHASONE 4 MG/ML 1ML VIAL (J1100) As Ordered (11:11)
[2017-10-20] MEDS ORDERED: ONDANSETRON 4MG/2ML VIAL (J2405) As Ordered (11:11)
[2017-10-20] MEDS ORDERED: LIDOCAINE 2% INJ 100 MG/5 ML SDV (FOR ANES.) As Ordered (11:11)
[2017-10-20] MEDS ORDERED: MIDAZOLAM INJ 2 MG/2 ML VIAL (J2250) As Ordered (11:11)
[2017-10-20] MEDS ORDERED: PROPOFOL 200 MG/20 ML VIAL As Ordered (11:11)
[2017-10-20] MEDS: CONRAY-60 60% 50ML VIAL (Q9961) As Ordered (11:20)
[2017-10-20] MEDS: LR 1,000 ML IV (11:45)
[2017-10-20] MEDS ORDERED: NORCO, ANEXSIA 5/325MG TABLET (HYDROcodone/ACETAMINOPHEN) PO (11:45)
[2017-10-20] MEDS ORDERED: fentaNYL 100 MCG/2 ML INJECTION (J3010) IV (11:45)
[2017-10-20] MEDS ORDERED: ONDANSETRON 4MG/2ML VIAL (J2405) IV (11:45)
[2017-10-20] MEDS: ACETAMINOPHEN TAB 650MG DOSE (2X325MG) PO (12:28)
[2017-10-20] MEDS: cefTRIAXone SOD 1 GM in D5W MINI-BAG PLUS 50 ML IV (17:00)
== END 2017-10-20 17:40 | disposition home or self-care (01) | DRG 694 ==
LOC: M ED 13:11 → M ED INP 16:08 → M MSPAV 17:00
PROC: 0TCB8ZZ Extirpation of Matter from Bladder, Via Natural or Artificial Opening Endoscopic (ICD-10-PCS; principal; 2017-10-20 08:00)
DX: N13.2 Hydronephrosis with renal and ureteral calculous obstruction (principal); N40.1 Benign prostatic hyperplasia with lower urinary tract symptoms; Z79.82 Long term (current) use of aspirin; Z79.899 Other long term (current) drug therapy; E78.5 Hyperlipidemia, unspecified; M19.90 Unspecified osteoarthritis, unspecified site; M10.9 Gout, unspecified; K21.9 Gastro-esophageal reflux disease without esophagitis; Z90.49 Acquired absence of other specified parts of digestive tract; Z87.891 Personal history of nicotine dependence; Z90.79 Acquired absence of other genital organ(s)

== ENCOUNTER 2018-02-23 01:54 | Emergency (ER) | payer MEDICARE, OTHER ==
[2018-02-23] MEDS: ACETAMINOPHEN 325 MG TAB PO (03:00)
[2018-02-23 03:04] LABS: BASO % 0.2 % (0.0-1.0); EOS # 0.1 10^3/uL (0.0-0.50); EOS % 0.8 % (0.0-3.0); HEMATOCRIT 36.5 % (42.0-52.0); HEMOGLOBIN 12.1 g/dl (13.5-17.5); IMMATURE GRANULOCYTE % 0.4 % (0-3.0); LYMPH # 2.4 10^3/uL (1.5-4.5); LYMPH % 20.4 % (24.0-44.0); MEAN CORPUSCULAR HEMOGLOBIN 33.2 pg (27.0-33.0); MEAN CORPUSCULAR HGB CONC 33.2 g/dl (32.0-36.5); MEAN CORPUSCULAR VOLUME 100.3 fl (80.0-96.0); MONO # 1.2 10^3/uL (0.0-0.8); MONO % 10.1 % (0.0-5.0); NEUTROPHILS # 8.1 10^3/uL (1.8-7.7); NEUTROPHILS % 68.1 % (36.0-66.0); PLATELET COUNT, AUTOMATED 263 10^3/uL (150-450); RED BLOOD COUNT 3.64 10^6/uL (4.30-6.10); RED CELL DISTRIBUTION WIDTH 13.9 % (11.5-14.5); WHITE BLOOD COUNT 11.8 10^3/uL (4.0-10.0)
[2018-02-23 03:08] LABS: INR 0.96; PROTHROMBIN TIME 12.8 SECONDS (12.1-14.4)
[2018-02-23 03:16] LABS: LACTIC ACID SEPSIS PROTOCOL 0.9 MMOL/L (0.4-2.0)
[2018-02-23 03:17] LABS: ANION GAP 6 MEQ/L (8-16); BLOOD UREA NITROGEN 22 MG/DL (7-18); CARBON DIOXIDE LEVEL 28 MEQ/L (21-32); CHLORIDE LEVEL 110 MEQ/L (98-107); CK-MB VALUE MASS < 1.0 NG/ML (<3.6); CPK CREATINE PHOSPHOKINASE 66 U/L (39-308); CREATININE FOR GFR 0.79 MG/DL (0.70-1.30); GLOMERULAR FILTRATION RATE > 60.0 (>35); GLUCOSE, FASTING 122 MG/DL (70-100); MB/CK RELATIVE INDEX 1.52 (< OR =4); POTASSIUM SERUM 4.1 MEQ/L (3.5-5.1); SODIUM LEVEL 144 MEQ/L (136-145); TROPONIN I < 0.02 NG/ML (< 0.10)
[2018-02-23] MEDS: KETOROLAC 30 MG/ML VIAL (J1885) IV (03:45)
[2018-02-23] MEDS: NS 500 ML IV (03:45)
[2018-02-23 03:47] LABS: INFLUENZA A AMPLIFICATION NEGATIVE (NEGATIVE); INFLUENZA B AMPLIFICATION NEGATIVE (NEGATIVE)
[2018-02-23] MEDS ORDERED: ISOVUE-370 76% 100ML VIAL (Q9967) As Ordered (03:54)
[2018-02-23 07:28] LABS: CK-MB VALUE MASS < 1.0 NG/ML (<3.6); CPK CREATINE PHOSPHOKINASE 51 U/L (39-308); MB/CK RELATIVE INDEX 1.96 (< OR =4); TROPONIN I < 0.02 NG/ML (< 0.10)
[2018-02-23] MEDS ORDERED: ACETAMINOPHEN TAB 650MG DOSE (2X325MG) PO (08:00)
[2018-02-23 08:16] LABS: KETONE, URINE AUTO RFX NEGATIVE (NEGATIVE); LEUKOCYTE ESTERASE UR AUTO RFX NEGATIVE (NEGATIVE); NITRITE, URINE AUTO RFX NEGATIVE (NEGATIVE); RBC, URINE AUTO RFX 1 /HPF (0-3); SPECIFIC GRAVITY UR AUTO RFX 1.043 (1.002-1.035); SQUAM EPITHELIAL CELL UR AURFX 0 /HPF (0-6); WBC, URINE AUTO RFX 1 /HPF (0-3)
== END 2018-02-23 09:39 | disposition home or self-care (01) ==
LOC: M ED 01:54
DX: R07.9 Chest pain, unspecified (principal); R07.89 Other chest pain; R50.9 Fever, unspecified; I44.0 Atrioventricular block, first degree; I49.8 Other specified cardiac arrhythmias; I77.810 Thoracic aortic ectasia; J92.9 Pleural plaque without asbestos; K57.30 Diverticulosis of large intestine without perforation or abscess without bleeding; J98.11 Atelectasis; G89.29 Other chronic pain; M54.9 Dorsalgia, unspecified; Z87.442 Personal history of urinary calculi; Z79.82 Long term (current) use of aspirin; Z79.899 Other long term (current) drug therapy
CPT/HCPCS: Q9967

== ENCOUNTER → 2018-06-12 | Outpatient (CLI) | payer MEDICARE, OTHER ==
[~2018-06-12] MED LIST changes: +ACET1TAB55 PO; +ALFU10TA2 PO; +ALLO10TA PO; +ASPI1TAB15 PO; +ATOR1TAB21; +BACT800T5 PO; +COLA100C5 PO; +FINA5TAB2 PO; +GABA-1171; +GABA-1171 PO; +GAS-80CH PO; -GASTROGRAFIN SOLUTION 30ML (Q9963) As Ordered ONE; -ISOVUE-370 76% 100ML VIAL (Q9967) As Ordered ONE; +LATA5OPD; +LATA5OPD OU; +LIPI20TA PO; +MACR100C43 PO; +MOVE1TAB PO; +NEXI40CA PO; +NORT10CA2 PO; +PANT40TA3 PO; +TRAM50TA2 PO; +VITA-122 PO; +VITA100072 PO; +XALA0.007 OU; +ZANT150T15 PO
--- NOTE | 2018-06-12 11:58 | REP ---
Abdominal right upper quadrant ultrasound for macrocytosis: There is a cholecystectomy. There is no intrahepatic or extrahepatic biliary duct dilatation. The common biliary duct measures 520 mm in diameter. The hepatic parenchyma is homogeneous. However, there is a cyst containing septations and a calcification in the right lobe of the liver inferiorly laterally measuring 8.0 7.5 x 12.6 cm. Upon review of a prior abdomen CT dated 10/19/2017, this cyst can be identified. It is unchanged in size, however, calcification and septations are not appreciated on the comparison CT that was performed without IV contrast. The pancreas is obscured by bowel gas. The right kidney measures 12.2 x 5.1 x 4.8 cm. Right kidney is normal size. There are no right renal calculi. There is no hydronephrosis. There are no solid or cystic right renal masses. The visualized portions of the abdominal aorta are unremarkable. There is no right upper quadrant ascites. Impression: There is a 12.6 cm cyst in the right lobe of the liver inferolaterally containing a calcification and septations. It is unchanged in size from the comparison abdomen and pelvis CT dated 10/19/2017, however, on the comparison CT. The calcification and septations are not appreciated. The hepatic parenchyma is otherwise homogeneous and unremarkable. Follow-up evaluation of the liver can be performed with MRI. Electronically Signed by Lane Butler MD 06/12/2018 11:50 A
== END ==
LOC: M RAD 10:15
PROVIDERS: ATTEND Nurse Practitioner Family
DX: D75.89 Other specified diseases of blood and blood-forming organs (principal); Z90.49 Acquired absence of other specified parts of digestive tract; K76.89 Other specified diseases of liver

== ENCOUNTER → 2018-06-23 | Outpatient (CLI) | payer MEDICARE, OTHER ==
[~2018-06-23] MED LIST changes: +PROHANCE 279.3MG/ML 15ML VIAL (A9576) As Ordered ONE; +PROHANCE 279.3MG/ML 5ML VIAL (A9576) As Ordered ONE
--- NOTE | 2018-06-23 14:35 | REP ---
MRI study of the liver and abdomen without and with IV gadolinium: History: Abnormal findings on ultrasound. Comparison hepatic sonography June 12, 2018 showed a 13 mm complex cyst in the right lobe of the liver inferolaterally. Sonographic features suggested calcification or septations or both. Hepatic MRI was suggested. Comparison studies. Multiple prior abdominal CT studies are reviewed in addition to the recent hepatic sonography. The most recent prior abdomen CT study is dated October 19, 2017. The most remote prior CT examination is from June 28, 2010. MRI technique: Axial and coronal T1 and T2-weighted scans were obtained. Sequences include spin-echo, fast spin echo, diffusion, in and [id number], and dynamically acquired post gadolinium enhanced T1 fat sat images. The gadolinium enhancement dose is 16 mL of intravenous ProHance. MRI findings: T1 and T2-weighted scans demonstrate a focal lesion in the inferior aspect of the right lobe of the liver characterized by low T1 and high T2 signal intensity. This has a somewhat irregular globular shape consistent with a septated cyst. It is 13 mm in greatest diameter. It is unchanged when compared with prior CT studies dating back to the 2010 prior study when it also measured 13 mm. This is felt to be consistent with a benign cyst. No other focal liver lesion is seen. No adrenal lesion is observed. No pancreatic abnormality is seen. There are small parapelvic cysts in the right kidney. No evidence of upper abdominal adenopathy or ascites is seen. No splenic abnormality is observed. Contrast enhanced study shows no enhancement in the septated cyst. There is a tiny subcortical cyst in the lower pole of the left kidney. 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 Electronically Signed by Luis Wilson MD 06/23/2018 07:29 P
== END ==
LOC: M RAD 10:36
PROVIDERS: ATTEND Nurse Practitioner Family
DX: K76.89 Other specified diseases of liver (principal); N28.1 Cyst of kidney, acquired
CPT/HCPCS: 74183; A9576

== ENCOUNTER → 2019-02-25 | Outpatient (CLI) | payer MEDICARE, OTHER ==
[~2019-02-25] MED LIST changes: -/METH500TA OR; +LATA0.0013; +LATA0.0013 OU; -LATA5OPD; -LATA5OPD OU; +METH1TAB40 OR; -PROHANCE 279.3MG/ML 15ML VIAL (A9576) As Ordered ONE; -PROHANCE 279.3MG/ML 5ML VIAL (A9576) As Ordered ONE; +RANI150T PO; +VITA100018 PO; -VITA100072 PO
--- NOTE | 2019-02-25 14:32 | REP ---
MRI lumbar spine: 02/25/2019. Indication: Low back pain. Comparison: None. Technique: Multiplanar short and long TR sequences of the lumbar spine were performed without IV Gadolinium. Findings: There is minimal retrolisthesis of L2 on L3 and L3 on L4. Disc desiccation and disc space narrowing are present throughout. Endplate degenerative signal changes are present most pronounced anteriorly and inferiorly with L2. The visualized cord is normal. No significant paraspinal soft tissue abnormalities are detected. L1/L2: Diffuse disc and spur complex is present most pronounced anteriorly without significant spinal canal or neural foraminal narrowing. L2/L3: Diffuse disc and spur complex, most pronounced anteriorly and bilateral facet arthrosis are present with mild narrowing of the spinal canal / lateral recesses. Mild to moderate bilateral neural foraminal narrowing is present. L3/L4: Diffuse disc bulge more pronounced on the right and right greater than left facet arthrosis are present with mild narrowing of the lateral recesses. Moderate to severe right greater than left neural foraminal narrowing is present. L4/L5: Mild diffuse disc bulge and bilateral facet arthropathy are present with mild narrowing of the spinal canal. There is moderate right and mild left neural foraminal narrowing. L5/S1: Fused disc and spur complex and bilateral facet arthropathy are present with mild recess narrowing. Moderate to severe left greater than right neural foraminal narrowing is present. Impression: Multilevel degenerative sequelae as described without severe spinal stenosis. Please correlate neural foraminal areas of narrowing with radicular level. Electronically Signed by Niles Mc DO 02/25/2019 02:23 P
== END ==
LOC: M RAD 12:54
PROVIDERS: ATTEND Internal Medicine Rheumatology
DX: M51.26 Other intervertebral disc displacement, lumbar region (principal); M51.36 Other intervertebral disc degeneration, lumbar region

== ENCOUNTER → 2019-03-29 | Outpatient (CLI) | payer MEDICARE, OTHER ==
--- NOTE | 2019-04-01 10:50 | DEXA ---
AP SPINE L1 - L4 1.254 0.5 0.9 LT FEMUR TOTAL 0.866 -1.1 -0.4 LT NECK 0.729 -2.2 -1.0 RT FEMUR TOTAL 0.789 -1.7 -0.9 RT NECK 0.764 -2.0 -0.7 TOTAL BODY TOTAL OTHER COMMENTS: Normal bone densitometry of the spine. There is low bone density of the hips. The density of the spine has decreased 6.5% since 10/19/2015. The density of the left hip has decreased 7.2% since 10/19/2015. The density of the right hip has decreased 8.6% since 10/19/2015. The decreased density of the spine does represent a significant change. The decreased density of the left hip does represent a significant change. The decreased density of the right hip does represent a significant change. FOLLOW-UP: Recommendation for the next bone density exam: 2 years. [id number]
== END ==
LOC: M WHC 12:34
PROVIDERS: ATTEND Internal Medicine Rheumatology
DX: M85.80 Other specified disorders of bone density and structure, unspecified site (principal)

== ENCOUNTER 2020-01-03 12:20 | Observation (INO) | payer MEDICARE, OTHER ==
[~2020-01-03] VITALS: Ht 175.3 cm; Wt 89.9 kg
[~2020-01-03 12:20] MED LIST changes: -ALFU10TA2 PO; +ALFU10TA3 PO; +ASPI-546 PO; -ASPI1TAB15 PO; +PANT40TA29 PO; -PANT40TA3 PO
[2020-01-03] MEDS ORDERED: PRED25TA PO (13:16)
[2020-01-03] MEDS ORDERED: PRED5CON PO (13:16)
[2020-01-03] MEDS ORDERED: PRED5TA PO (13:17)
[2020-01-03] MEDS ORDERED: HYDR200T3 PO (13:18)
[2020-01-03] MEDS ORDERED: MULT-90 PO (13:19)
[2020-01-03] MEDS ORDERED: CALCTAB41 PO (13:20)
[2020-01-03] MEDS ORDERED: senna (13:25)
[2020-01-03] MEDS ORDERED: METH1TAB40 PO (13:27)
[2020-01-03] MEDS ORDERED: RECL5INJ2 IV (13:27)
[2020-01-03] MEDS ORDERED: [UNRECOGNIZED DRUG - OTHER] (13:28)
[2020-01-03 14:18] LABS: BASO # 0.1 10^3/uL (0.0-0.2); BASO % 0.5 % (0.0-1.0); EOS # 0.1 10^3/uL (0.0-0.5); EOS % 0.7 % (0.0-3.0); HEMATOCRIT 38.5 % (42.0-52.0); HEMOGLOBIN 12.9 g/dl (13.5-17.5); LYMPH # 3.4 10^3/uL (1.5-5.0); LYMPH % 34.4 % (24.0-44.0); MEAN CORPUSCULAR HEMOGLOBIN 34.1 pg (27.0-33.0); MEAN CORPUSCULAR HGB CONC 33.5 g/dl (32.0-36.5); MEAN CORPUSCULAR VOLUME 101.9 fl (80.0-96.0); MONO # 0.9 10^3/uL (0.0-0.8); MONO % 9.4 % (0.0-5.0); NEUTROPHILS # 5.4 10^3/uL (1.5-8.5); NEUTROPHILS % 54.6 % (36.0-66.0); PLATELET COUNT, AUTOMATED 197 10^3/uL (150-450); RED BLOOD COUNT 3.78 10^6/uL (4.30-6.10); WHITE BLOOD COUNT 9.9 10^3/uL (4.0-10.0)
[2020-01-03 14:29] LABS: INR 1.05; PROTHROMBIN TIME 13.9 SECONDS (11.8-14.0)
[2020-01-03 14:30] LABS: PARTIAL THROMBOPLASTIN TIME 30.6 SECONDS (25.0-38.4)
[2020-01-03 14:50] LABS: ALBUMIN 3.3 GM/DL (3.2-5.2); ALT/SGPT 18 U/L (12-78); BILIRUBIN,DIRECT 0.2 MG/DL (0.0-0.2); BILIRUBIN,TOTAL 0.6 MG/DL (0.2-1.0); BLOOD UREA NITROGEN 11 MG/DL (7-18); CALCIUM LEVEL 8.4 MG/DL (8.8-10.2); CARBON DIOXIDE LEVEL 27 MEQ/L (21-32); CHLORIDE LEVEL 108 MEQ/L (98-107); CREATININE FOR GFR 0.63 MG/DL (0.70-1.30); GLOMERULAR FILTRATION RATE > 60.0 (>35); GLUCOSE, FASTING 82 MG/DL (70-100); POTASSIUM SERUM 3.9 MEQ/L (3.5-5.1); SODIUM LEVEL 142 MEQ/L (136-145); THYROID STIMULATING HORMONE 0.874 uIU/ML (0.358-3.740); TOTAL PROTEIN 6.3 GM/DL (6.4-8.2)
[2020-01-03] MEDS ORDERED: MORPHINE 4 MG/ML 1ML VIAL/SYRINGE (J2270) IV ONE (15:15)
[2020-01-03 15:34] LABS: C REACTIVE PROTEIN QUANTITATIV 2.07 MG/DL (0.00-0.30); CK-MB VALUE MASS < 1.0 NG/ML (<3.6); CPK CREATINE PHOSPHOKINASE 44 U/L (39-308); MB/CK RELATIVE INDEX 2.27 (< OR =4); TROPONIN I < 0.02 NG/ML (< 0.10); URIC ACID 3.1 MG/DL (3.5-7.2)
--- NOTE | 2020-01-03 16:03 | REPVR ---
PROCEDURE INFORMATION: Exam: XR Chest, 1 View Exam date and time: 01/03/2020 3:23 PM Age: 84 years old Clinical indication: Other: Weakness TECHNIQUE: Imaging protocol: XR of the chest Views: 1 view. COMPARISON: CR Chest, 2 view PA, Lat 02/23/2018 3:08 AM FINDINGS: Limitations: The apical lordotic projection distorts the appearance of the chest and makes the lungs appear smaller than they actually are. Lungs: The lungs are clear. Pleural space: No significant pleural effusion. No pneumothorax. Heart/Mediastinum: The cardiac silhouette is normal in size. The mediastinal contour is normal. Vasculature: Pulmonary vasculature is normal in appearance. The aorta is mildly ectatic and tortuous. Bones/joints: Postsurgical changes of median sternotomy and coronary artery bypass graft surgery. No acute osseous abnormalities are identified. Soft tissues: Unremarkable. IMPRESSION: 1. 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 2. No acute thoracic abnormality. 3. No interval change when compared to most recent x-ray on 02/23/18. Electronically signed by: Reynaldo Hay On 01/03/2020 16:02:47 PM
[2020-01-03 16:17] LABS: ERYTHROCYTE SEDIMENTATION RATE 4 mm/hr (0-20)
--- NOTE | 2020-01-03 17:07 | REPVR ---
PROCEDURE INFORMATION: Exam: US Duplex Upper Extremity Veins Exam date and time: 01/03/2020 4:49 PM Age: 84 years old Clinical indication: Pain; Arm, upper; Bilateral; Additional info: Arm swelling R/O dvt TECHNIQUE: Imaging protocol: Real-time Duplex ultrasound of the Upper Extremities with 2-D ordaz scale, color Doppler flow and spectral waveform analysis with image documentation. Complete exam focused on the bilateral upper extremity veins. COMPARISON: No relevant prior studies available. FINDINGS: Right deep veins: Unremarkable. Axillary and brachial veins are patent throughout without thrombus. Normal Doppler waveforms. Normal compressibility and/or augmentation response. Visualized internal jugular and subclavian veins are patent. Right superficial veins: Unremarkable. Visualized cephalic and basilic veins are patent without thrombus. Left deep veins: Unremarkable. Axillary and brachial veins are patent throughout without thrombus. Normal Doppler waveforms. Normal compressibility and/or augmentation response. Visualized internal jugular and subclavian veins are patent. Left superficial veins: Unremarkable. Visualized cephalic and basilic veins are patent without thrombus. Soft tissues: Arm swelling. IMPRESSION: No evidence of deep vein thrombosis. Electronically signed by: Reynaldo Hay On 01/03/2020 17:06:47 PM
[2020-01-03] MEDS ORDERED: SIME80TA PO (17:20)
[2020-01-03] MEDS ORDERED: VITA100018 PO (17:20)
[2020-01-03] MEDS ORDERED: D31000TA2 PO (17:20)
[2020-01-03] MEDS ORDERED: RA S8.6T3 PO (17:20)
[2020-01-03] MEDS ORDERED: DOCU100C16 PO (17:20)
--- NOTE | 2020-01-03 17:33 | REPVR ---
PROCEDURE INFORMATION: Exam: CT Head Without Contrast Exam date and time: 01/03/2020 4:54 PM Age: 84 years old Clinical indication: Other: Generalized weakness TECHNIQUE: Imaging protocol: Computed tomography of the head without contrast. Radiation optimization: All CT scans at this facility use at least one of these dose optimization techniques: automated exposure control; mA and/or kV adjustment per patient size (includes targeted exams where dose is matched to clinical indication); or iterative reconstruction. COMPARISON: CT Head without contrast 06/25/2017. FINDINGS: Brain: No acute findings. No mass. No signs of acute infarct. No focal cerebral lesions. Areas of decreased attenuation in the periventricular and subcortical cerebral white matter are consistent with chronic small vessel ischemic disease. Ventricles: Mild/moderate cortical atrophy with proportionate dilatation of the ventricles is appropriate for 84 years of age. Bones/joints: Unremarkable. No acute fracture. Sinuses: Visualized sinuses are unremarkable. No fluid levels. Mastoid air cells: Visualized mastoid air cells are well aerated. Orbits: Normal. Soft tissues: Unremarkable. IMPRESSION: 1. No acute intracranial abnormality. 2. Moderate microvascular ischemic disease. 3. Mild/moderate age-appropriate global brain atrophy. 4. No interval change when compared to most recent CT on 06/25/17. Electronically signed by: Reynaldo Hay On 01/03/2020 17:33:12 PM
[2020-01-03] MEDS ORDERED: SIMETHICONE 80 MG CHEW TAB PO PRN (18:30)
[2020-01-03] MEDS ORDERED: methocarbamoL 500 MG TAB PO PRN (18:30)
--- NOTE | 2020-01-03 18:54 | HPEPDOC ---
General Date of Admission Jan 03, 2020 at 12:21 Date of Service: Jan 03, 2020 Other Providers Compensation Supervisor: Dr. Vicky Rock MD Attending Physician: LENA MENSAH DO Chief Complaint The patient is a 84-year-old male admitted with a reason for visit of Arthritis Pain Hand Polymyalgia Rheumatica. Source: Patient Exam Limitations: No limitations History of Present Illness Pt has been suffering arthralgias and likely an inflammatory arthritis since his 30's but was only recently diagnosed with Polymyalgia Rheumatica. Over the past week or so however his arthralgia has been flaring up, to the point where he has not been able to open his pill bottles for the past 2 days, and he hasn't had any meds for 2 days now. Even worse, he cannot open any food containers, and since he is a , there is no one else in the home to help him. Although admittedly stubborn, he realized that he needed help and called the ambulance and came to the ED. He is admitted for acute flare-up of PMR/Inflammatory a rthritis. Home Medications Scheduled Alfuzosin HCl (Alfuzosin HCl ER) 10 Mg Tab, 10 MG PO QHS, (Reported) Allopurinol (Allopurinol) 100 Mg Tab, 100 MG PO DAILY, (Reported) Calcium Carbonate/Vitamin D3 (Calcium 500-Vit D3 400 Tablet) 1 Each Tablet, 1 TAB PO BID, (Reported) Cholecalciferol (Vitamin D3) (Vitamin D3) 1,000 Unit Tablet, 1,000 UNITS PO QHS, (Reported) Cyanocobalamin (Vitamin B-12) (Vitamin B-12) 1,000 Mcg Tablet, 1,000 MCG PO QHS, (Reported) Docusate Sodium (Docusate Sodium) 100 Mg Capsule, 100 MG PO Q2D, (Reported) Finasteride (Finasteride) 5 Mg Tab, 5 MG PO QHS, (Reported) Hydroxychloroquine Sulfate (Hydroxychloroquine Sulfate) 200 Mg Tablet, 200 MG PO BID, (Reported) Multivitamin (Multivitamin) 1 Each Tablet, 1 TAB PO DAILY, (Reported) Prednisone (Prednisone) 2.5 Mg Tablet, 2.5 MG PO QPM, (Reported) Prednisone (Prednisone) 5 Mg Tablet, 5 MG PO QAM, (Reported) Sennosides (Senna Lax) 8.6 Mg Tablet, 8.6 MG PO Q2D, (Reported) Scheduled PRN Acetaminophen (Acetaminophen) 325 Mg Tab, 650 MG PO Q4H PRN for PAIN, (Reported) Methocarbamol (Methocarbamol) 500 Mg Tablet, 500 MG PO for MUSCLE SPASMS, (Reported) Simethicone (Simethicone) 80 Mg Tab.chew, 80 MG PO Q6H PRN for GAS PAIN, (Reported) Allergies Coded Allergies: mannitol (Verified Adverse Reaction, Unknown, NAUSEA, 01/03/20) water for injection,sterile (Verified Adverse Reaction, Unknown, NAUSEA, 01/03/20) zoledronic acid (Verified Adverse Reaction, Unknown, NAUSEA, 01/03/20) Past Medical History Medical History Inflammatory Arthritis PMR Hyperlipidemia BPH Kidney stone Heart murmur Surgical History R Orchiectomy 07/13/17 Cholecystectomy appendectomy cystoscopy colonoscopy and endoscopy 04/2014 Bilateral Cataracts Family History Father - age 56 - CA unknown, stroke Brother - Prostate CA Mother - 97 - old age Social History * Smoker: former Smoker (Quit decades ago) Alcohol: Denies Drugs: denies Recent Travel/Sick Contacts: Denies: Recent travel, Recent sick contacts Psychosocial History: No pertinent psych hx A-FIB/CHADSVASC A-FIB History Current/History of A-Fib/PAF?: No Current PO Anticoag Therapy: No Review of Systems Constitutional: Denies: Chills, Fever, Night Sweats Skin: Denies: Rash, Lesions, Breakdown Pulmonary: Denies: Dyspnea, Cough Cardiovascular: Denies: Chest Pain, Palpitations, Orthopnea, Paroxysmal Noc. Dyspnea, Lt Headedness Gastrointestinal: Denies: Nausea, Vomiting, Abdominal Pain, Diarrhea Hematologic: Denies: Bruising, Bleeding Excessively Musculoskeletal: Reports: Neck Pain, Back Pain, Shoulder Pain, Hand Pain, Joint Pain Neurological: Denies: Weakness, Numbness, Change in speech, Confusion Psych: Reports: Mood Normal; Denies: Depression, Memory Issues Physical Examination General Exam: Positive: Alert, No Acute Distress Eye Exam: Positive: Conjunctiva & lids normal, EOMI; Negative: Sclera icteric ENT Exam: Positive: Atraumatic, Mucous membr. moist/pink, Pharynx Normal Chest Exam: Positive: Clear to auscultation, Normal air movement Heart Exam: Positive: Rate Normal, Regular Rhythm, Murmurs (2/6 systolic); Negative: Rubs Abdomen Exam: Positive: Normal bowel sounds Skin Exam: Positive: Nl turgor and temperature; Negative: Breakdown, Lesion Psych Exam: Positive: Mental status NL, Mood NL, Oriented x 3 Vital Signs Vital Signs Date Time Temp Pulse Resp B/P (MAP) Pulse Ox O2 Delivery O2 Flow Rate FiO2 01/03/20 15:53 18 98 01/03/20 15:27 Room Air 01/03/20 13:09 01/03/20 12:20 97.7 69 Laboratory Data Labs 24H Laboratory Tests 2 01/03/20 14:05: Immature Granulocyte % (Auto) 0.4, Neutrophils (%) (Auto) 54.6, Lymphocytes (%) (Auto) 34.4, Monocytes (%) (Auto) 9.4H, Eosinophils (%) (Auto) 0.7, Basophils (%) (Auto) 0.5, Neutrophils # (Auto) 5.4, Lymphocytes # (Auto) 3.4, Monocytes # (Auto) 0.9H, Eosinophils # (Auto) 0.1, Basophils # (Auto) 0.1, Nucleated Red Blood Cells % (auto) 0.0, Erythrocyte Sedimentation Rate 4, Prothrombin Time 13.9, Prothromb Time International Ratio 1.05, Activated Partial Thromboplast Time 30.6, Anion Gap 7L, Glomerular Filtration Rate > 60.0, Uric Acid 3.1L, Calcium Level 8.4L, Total Bilirubin 0.6, Direct Bilirubin 0.2, Aspartate Amino Transf (AST/SGOT) 15, Alanine Aminotransferase (ALT/SGPT) 18, Alkaline Phosphatase 62, Total Creatine Kinase 44, Creatine Kinase MB < 1.0, Creatine Kinase MB Relative Index 2.27, Troponin I < 0.02, C-Reactive Protein, Quantitative 2.07H, Total Protein 6.3L, Albumin 3.3, Albumin/Globulin Ratio 1.1, Thyroid Stimulating Hormone (TSH) 0.874, Free Thyroxine 1.10 CBC/BMP Laboratory Tests 01/03/20 14:05 Problems (1) Polymyalgia rheumatica Status: Acute Problem Text: -Current home dose of prednisone is 5mg in AM, 2.5mg in PM -Will start him on 10mg BID now while inpatient, may taper back to his usual dose according to response. -will need to follow up with his Compensation Supervisor Dr. Rock upon discharge. (2) Arthritis pain, hand Status: Acute (3) BPH (benign prostatic hyperplasia) Status: Chronic Problem Text: We do not have Alfuzosin on formulary, therefore will give Flomax while inpatient, may switch back to home med on discharge (4) Constipation Status: Chronic Problem Text: Continue home dose of Simethicone, Colace, Senna Plan / VTE VTE Prophylaxis Ordered?: Yes Plan Disposition Admitted to Med/Surg, obs status. May d/c when pain/arthritis is back under control and he is safe/able to take care of himself at home. LENA MENSAH DO Jan 03, 2020 18:54
[2020-01-03] MEDS: CALCIUM/VITAMIN D 500 MG TAB PO SCH (20:48)
[2020-01-03] MEDS: ACETAMINOPHEN 325 MG TAB PO PRN (20:49)
[2020-01-03] MEDS: predniSONE 10 MG TAB PO SCH (20:49)
[2020-01-03] MEDS: allopurinoL 100 MG TAB PO SCH (20:50)
[2020-01-03] MEDS: HYDROXYCHLOROQUINE 200 MG TAB PO SCH (21:00)
[2020-01-03] MEDS ORDERED: VITAMIN D 1,000 INTERNATIONAL UNITS TABLET PO SCH (21:00)
[2020-01-03] MEDS ORDERED: FINASTERIDE 5 MG TAB PO SCH (21:00)
[2020-01-03] MEDS ORDERED: CALCIUM/VITAMIN D 500 MG TAB PO SCH (21:00)
[2020-01-03] MEDS ORDERED: CYANOCOBALAMIN 500 MCG TAB PO SCH (21:00)
[2020-01-03 22:00] VITALS: BP 143/72
[2020-01-04] MEDS: ACETAMINOPHEN 325 MG TAB PO PRN (02:38)
[2020-01-04 06:00] VITALS: BP 117/67
[2020-01-04 07:58] LABS: BASO % 0.3 % (0.0-1.0); EOS % 0.3 % (0.0-3.0); HEMATOCRIT 41.5 % (42.0-52.0); HEMOGLOBIN 14.1 g/dl (13.5-17.5); LYMPH # 3.5 10^3/uL (1.5-5.0); MEAN CORPUSCULAR HEMOGLOBIN 34.6 pg (27.0-33.0); MEAN CORPUSCULAR VOLUME 101.7 fl (80.0-96.0); MONO # 0.7 10^3/uL (0.0-0.8); MONO % 5.9 % (0.0-5.0); NEUTROPHILS # 7.7 10^3/uL (1.5-8.5); NEUTROPHILS % 64.1 % (36.0-66.0); PLATELET COUNT, AUTOMATED 205 10^3/uL (150-450); RED BLOOD COUNT 4.08 10^6/uL (4.30-6.10); WHITE BLOOD COUNT 11.9 10^3/uL (4.0-10.0)
[2020-01-04 08:22] LABS: BLOOD UREA NITROGEN 13 MG/DL (7-18); CALCIUM LEVEL 8.8 MG/DL (8.8-10.2); CARBON DIOXIDE LEVEL 31 MEQ/L (21-32); CHLORIDE LEVEL 107 MEQ/L (98-107); CREATININE FOR GFR 0.67 MG/DL (0.70-1.30); GLOMERULAR FILTRATION RATE > 60.0 (>35); GLUCOSE, FASTING 110 MG/DL (70-100); MAGNESIUM LEVEL 2.1 MG/DL (1.8-2.4); POTASSIUM SERUM 4.2 MEQ/L (3.5-5.1); SODIUM LEVEL 141 MEQ/L (136-145)
[2020-01-04] MEDS ORDERED: TAMSULOSIN 0.4 MG CAP PO SCH (09:00)
[2020-01-04] MEDS: HYDROXYCHLOROQUINE 200 MG TAB PO SCH (09:00)
[2020-01-04] MEDS ORDERED: SENNA 8.6 MG TAB (SENOKOT) PO SCH (09:00)
[2020-01-04] MEDS ORDERED: MULTIVITAMINS/MINERALS THERAP 1 TAB PO SCH (09:00)
[2020-01-04] MEDS ORDERED: ENOXAPARIN 40MG/0.4ML SYRINGE (J1650 PER 10MG) SC SCH (09:00)
[2020-01-04] MEDS: predniSONE 10 MG TAB PO SCH (10:10)
[2020-01-04] MEDS: allopurinoL 100 MG TAB PO SCH (10:11)
[2020-01-04] MEDS: CALCIUM/VITAMIN D 500 MG TAB PO SCH (10:11)
[2020-01-04] MEDS ORDERED: PRED10TA2 PO (10:47)
[2020-01-04] MEDS ORDERED: PROTPAK PO (10:47)
--- NOTE | 2020-01-04 10:55 | DS.PDOC ---
Discharge Summary General Date of Admission Jan 03, 2020 at 12:21 Date of Discharge 01/04/2020 Discharge Summary PROCEDURES PERFORMED DURING STAY: [None]. ADMITTING DIAGNOSES / DISCHARGE DIAGNOSES: Inflammatory Arthritis - 2/2 Polymyalgia rheumatica Hyperlipidemia BPH Hx of Kidney stone Heart murmur Constipation DVT prophylaxis COMPLICATIONS/CHIEF COMPLAINT: Arthritis / Polymyalgia Rheumatica HISTORY OF PRESENT ILLNESS / HOSPITAL COURSE: Patient is an 84 year old male with a PMHx of Inflammatory arthritis 2/2 PMR, DLP, BPH, Hx of kidney stones, and GERD who presented to the ER with difficulty opening pill bottles and food containers. He was admitted for an exacerbation of his PMR. Patient's dose of Prednisone was recently reduced as an outpatient while he was transitioning to Hydroxychloroquine, prescribed by his Heel Curver. Currently patient reports significant improvement in symptoms compared to yesterday. His dose of Prednisone was increased on admission. Patient has cleared PT and OT for discharge home. He has been given a script for Prednisone and Protonix. He was been advised to follow up with his PCP and Heel Curver (Dr. Rock) within 7 days. DISCHARGE MEDICATIONS: Please see below. ALLERGIES: Please see below. PHYSICAL EXAMINATION ON DISCHARGE: Vitals (See below) General: Lying in bed, no acute distress, appears comfortable, AAOx3 HEENT: NC, AT CVS: RRR, +S1S2 Lungs: Fair air entry b/l, -w/r/r Abdomen: Soft, ND, NT Extremities: - Edema, - Calf tenderness LABORATORY DATA: Please see below. ACTIVITY: [As tolerated]. DISCHARGE PLAN: Follow up with PCP and Dr. Rock (Rheumatology) within 7 days Remain compliant with treatment plan and medications Return to the ER if you experience any problems DISPOSITION: Home DISCHARGE CONDITION: [Stable]. TIME SPENT ON DISCHARGE: 25 minutes. Vital Signs/I&Os Vital Signs Date Time Temp Pulse Resp B/P (MAP) Pulse Ox O2 Delivery O2 Flow Rate FiO2 01/04/20 06:00 97.9 56 15 117/67 (84) 96 Room Air I&O- Last 24 Hours up to 6 AM 01/04/20 06:00 Intake Total 540 ml Output Total 430 ml Balance 110 ml Laboratory Data Labs 24H Laboratory Tests 2 01/03/20 14:05: Immature Granulocyte % (Auto) 0.4, Neutrophils (%) (Auto) 54.6, Lymphocytes (%) (Auto) 34.4, Monocytes (%) (Auto) 9.4H, Eosinophils (%) (Auto) 0.7, Basophils (%) (Auto) 0.5, Neutrophils # (Auto) 5.4, Lymphocytes # (Auto) 3.4, Monocytes # (Auto) 0.9H, Eosinophils # (Auto) 0.1, Basophils # (Auto) 0.1, Nucleated Red Blood Cells % (auto) 0.0, Erythrocyte Sedimentation Rate 4, Prothrombin Time 13.9, Prothromb Time International Ratio 1.05, Activated Partial Thromboplast Time 30.6, Anion Gap 7L, Glomerular Filtration Rate > 60.0, Uric Acid 3.1L, Calcium Level 8.4L, Total Bilirubin 0.6, Direct Bilirubin 0.2, Aspartate Amino Transf (AST/SGOT) 15, Alanine Aminotransferase (ALT/SGPT) 18, Alkaline Phosphatase 62, Total Creatine Kinase 44, Creatine Kinase MB < 1.0, Creatine Kinase MB Relative Index 2.27, Troponin I < 0.02, C-Reactive Protein, Quantitative 2.07H, Total Protein 6.3L, Albumin 3.3, Albumin/Globulin Ratio 1.1, Thyroid Stimulating Hormone (TSH) 0.874, Free Thyroxine 1.10 01/04/20 07:41: Immature Granulocyte % (Auto) 0.4, Neutrophils (%) (Auto) 64.1, Lymphocytes (%) (Auto) 29.0, Monocytes (%) (Auto) 5.9H, Eosinophils (%) (Auto) 0.3, Basophils (%) (Auto) 0.3, Neutrophils # (Auto) 7.7, Lymphocytes # (Auto) 3.5, Monocytes # (Auto) 0.7, Eosinophils # (Auto) 0.0, Basophils # (Auto) 0.0, Nucleated Red Blood Cells % (auto) 0.0, Anion Gap 3L, Glomerular Filtration Rate > 60.0, Calcium Level 8.8, Magnesium Level 2.1 CBC/BMP Laboratory Tests 01/03/20 14:05 01/04/20 07:41 Discharge Medications Scheduled Alfuzosin HCl (Alfuzosin HCl ER) 10 Mg Tab, 10 MG PO QHS, (Reported) Allopurinol (Allopurinol) 100 Mg Tab, 100 MG PO DAILY, (Reported) Calcium Carbonate/Vitamin D3 (Calcium 500-Vit D3 400 Tablet) 1 Each Tablet, 1 TAB PO BID, (Reported) Cholecalciferol (Vitamin D3) (Vitamin D3) 1,000 Unit Tablet, 1,000 UNITS PO QHS, (Reported) Cyanocobalamin (Vitamin B-12) (Vitamin B-12) 1,000 Mcg Tablet, 1,000 MCG PO QHS, (Reported) Docusate Sodium (Docusate Sodium) 100 Mg Capsule, 100 MG PO Q2D, (Reported) Finasteride (Finasteride) 5 Mg Tab, 5 MG PO QHS, (Reported) Hydroxychloroquine Sulfate (Hydroxychloroquine Sulfate) 200 Mg Tablet, 200 MG PO BID, (Reported) Multivitamin (Multivitamin) 1 Each Tablet, 1 TAB PO DAILY, (Reported) Pantoprazole Sodium (Protonix) 40 Mg Granpkt.dr, 40 MG PO DAILY Prednisone (Prednisone) 10 Mg Tablet, 1 TAB PO BID Sennosides (Senna Lax) 8.6 Mg Tablet, 8.6 MG PO Q2D, (Reported) Scheduled PRN Acetaminophen (Acetaminophen) 325 Mg Tab, 650 MG PO Q4H PRN for PAIN, (Reported) Methocarbamol (Methocarbamol) 500 Mg Tablet, 500 MG PO for MUSCLE SPASMS, (Reported) Simethicone (Simethicone) 80 Mg Tab.chew, 80 MG PO Q6H PRN for GAS PAIN, (Reported) Allergies Coded Allergies: mannitol (Verified Adverse Reaction, Unknown, NAUSEA, 01/03/20) water for injection,sterile (Verified Adverse Reaction, Unknown, NAUSEA, 01/03/20) zoledronic acid (Verified Adverse Reaction, Unknown, NAUSEA, 01/03/20) GIUSEPPE AMES MD Jan 04, 2020 10:55
[2020-01-05] MEDS ORDERED: DOCUSATE SODIUM 100 MG CAP PO SCH (09:00)
--- NOTE | 2020-01-10 10:42 | ECGEPIP ---
[facility] - ED Test Date: 2020-01-03 Pat Name: JESSIE MARTIN Department: Room: V5013-84 Gender: Male Grip Assembler: QUYEN : [id number] Requested By: JERED Krause Order Number: [id number] Reading MD: Siobhan Mock Measurements Intervals [place] Rate: 61 P: -10 [place]: 313 QRS: -26 QRSD: 112 T: 4 QT: 419 QTc: 423 Interpretive Statements SINUS RHYTHM WITH FIRST DEGREE AV BLOCK BORDERLINE LEFT AXIS DEVIATION MODERATE INTRAVENTRICULAR CONDUCTION DELAY ABNORMAL ECG SEE SCANNED DOWNTIME REPORT
== END 2020-01-04 12:20 | disposition home or self-care (01) ==
LOC: M ED 12:20 → M ED INP 12:21 → M MS5PR 19:03
PROVIDERS: ADMIT Neuromusculoskeletal Medicine & OMM; ATTEND Internal Medicine
DX: M06.4 Inflammatory polyarthropathy (principal); M35.3 Polymyalgia rheumatica; M79.89 Other specified soft tissue disorders; M25.541 Pain in joints of right hand; M25.542 Pain in joints of left hand; E78.5 Hyperlipidemia, unspecified; N40.0 Benign prostatic hyperplasia without lower urinary tract symptoms; Z87.442 Personal history of urinary calculi; R01.1 Cardiac murmur, unspecified; K59.09 Other constipation; K21.9 Gastro-esophageal reflux disease without esophagitis; I44.0 Atrioventricular block, first degree; Z79.899 Other long term (current) drug therapy; Z79.52 Long term (current) use of systemic steroids; Z88.8 Allergy status to other drugs, medicaments and biological substances; Z87.891 Personal history of nicotine dependence
CPT/HCPCS: 36415; 70450; 71045; 80048; 80076; 82550; 82553; 83735; 84439; 84443; 84484; 84550; 85025; 85610; 85652; 85730; 86140; 93005; 93041; 93970; 94760; 96374; 97161; 97165; 97530; 99285; G0378; J2270

== ENCOUNTER → 2021-05-22 | Outpatient (REF) | payer MEDICARE, OTHER ==
[~2021-05-22] MED LIST changes: +CALCTAB41 PO; +D31000TA2 PO; +DOCU100C16 PO; +HYDR200T3 PO; +METH-1164 PO; +MULT-90 PO; +PRED10TA2 PO; +PRED25TA PO; +PRED5CON PO; +PRED5TA PO; +PROTPAK PO; +RA S8.6T3 PO; +RECL5INJ2 IV; +SIME80CH5 PO; +[UNRECOGNIZED DRUG - OTHER]; +senna
[2021-05-22 17:29] LABS: APPEARANCE, URINE CLEAR (CLEAR); BACTERIA, URINE AUTO NEGATIVE (NEGATIVE); BILIRUBIN, URINE AUTO NEGATIVE (NEGATIVE); BLOOD, URINE BLOOD NEGATIVE (NEGATIVE); COLOR, URINE YELLOW (YELLOW); GLUCOSE, URINE (UA) AUTO NEGATIVE (NEGATIVE); KETONE, URINE AUTO NEGATIVE (NEGATIVE); LEUKOCYTE ESTERASE, URINE AUTO NEGATIVE (NEGATIVE); MUCUS, URINE SMALL (NEGATIVE); NITRITE, URINE AUTO NEGATIVE (NEGATIVE); PROTEIN, URINE AUTO NEGATIVE (NEGATIVE); RBC, URINE AUTO 0 /HPF (0-3); SPECIFIC GRAVITY URINE AUTO 1.018 (1.002-1.035); SQUAMOUS EPITHELIAL CELL UR AU 0 /HPF (0-6); UROBILINOGEN, URINE AUTO 0.2 mg/dL (0.0-2.0); WBC, URINE AUTO 2 /HPF (0-3)
== END ==
LOC: M SMT 16:35
PROVIDERS: ATTEND Nurse Practitioner Women's Health
DX: N35.919 Unspecified urethral stricture, male, unspecified site (principal); Z79.899 Other long term (current) drug therapy

== ENCOUNTER 2022-05-15 17:45 | Inpatient (IN) | payer OTHER, MEDICARE ==
[~2022-05-15] VITALS: Ht 172.7 cm; Wt 78.6 kg
[~2022-05-15 17:45] MED LIST changes: -D31000TA2 PO; +VITA100093 PO
[2022-05-15] MEDS ORDERED: [UNRECOGNIZED DRUG - CODE] (18:18)
[2022-05-15] MEDS ORDERED: ESOM40CA35 (18:18)
[2022-05-15] MEDS ORDERED: tiZANidine 4 MG TAB PO ONE ×2 (19:00→23:15)
[2022-05-15] MEDS ORDERED: MORPHINE 4 MG/ML 1ML VIAL IM ONE (19:00)
[2022-05-15] MEDS ORDERED: LIDOCAINE 2% 5ML JELLY UROJET TOP ONE ×2 (20:20→20:55)
[2022-05-15 21:42] LABS: BASO # 0.1 10^3/uL (0.0-0.2); BASO % 0.4 % (0.0-1.0); EOS # 0.1 10^3/uL (0.0-0.5); EOS % 0.5 % (0.0-3.0); HEMOGLOBIN 12.4 g/dl (13.5-17.5); LYMPH # 3.8 10^3/uL (1.5-5.0); LYMPH % 29.7 % (24.0-44.0); MEAN CORPUSCULAR HEMOGLOBIN 33.2 pg (27.0-33.0); MEAN CORPUSCULAR HGB CONC 33.5 g/dl (32.0-36.5); MEAN CORPUSCULAR VOLUME 99.2 fl (80.0-96.0); MONO # 1.3 10^3/uL (0.0-0.8); MONO % 10.1 % (2.0-8.0); NEUTROPHILS # 7.5 10^3/uL (1.5-8.5); NEUTROPHILS % 58.8 % (36.0-66.0); PLATELET COUNT, AUTOMATED 255 10^3/uL (150-450); RED BLOOD COUNT 3.73 10^6/uL (4.30-6.10); WHITE BLOOD COUNT 12.7 10^3/uL (4.0-10.0)
[2022-05-15 22:07] LABS: ALBUMIN 3.8 G/DL (3.2-5.2); BILIRUBIN,DIRECT 0.2 MG/DL (<0.4); BILIRUBIN,TOTAL 0.6 MG/DL (0.3-1.2); TOTAL PROTEIN 7.1 G/DL (5.7-8.2)
[2022-05-15 22:17] LABS: RSV AMPLIFICATION NEGATIVE (NEGATIVE)
[2022-05-15] MEDS ORDERED: MORPHINE 4 MG/ML 1ML VIAL IV ONE (23:15)
[2022-05-15] MEDS ORDERED: ACETAMINOPHEN TAB 650MG DOSE (2X325MG) PO PRN (23:30)
[2022-05-15] MEDS ORDERED: LIDOCAINE 5% (LIDODERM) PATCH TD ONE (23:30)
[2022-05-16] MEDS ORDERED: VITMTA PO (00:05)
[2022-05-16] MEDS ORDERED: HOME MED LIST COMPLETE! XX SCH (00:05)
[2022-05-16] MEDS ORDERED: ALLO300T2 PO (00:05)
[2022-05-16] MEDS ORDERED: ESOM1CAP5 PO (00:05)
[2022-05-16] MEDS ORDERED: PRED1TABL PO (00:05)
[2022-05-16] MEDS ORDERED: OYST500T91 PO (00:05)
[2022-05-16] MEDS ORDERED: [UNRECOGNIZED DRUG - CODE] PO (00:05)
[2022-05-16] MEDS ORDERED: PILL CUTTER 1 EACH XX ONE (00:38)
[2022-05-16] MEDS: MORPHINE 2 MG/ML 1ML VIAL IV PRN ×5 (00:43→21:04)
[2022-05-16] MEDS: DOCUSATE SODIUM 100MG CAPSULE PO SCH ×3 (02:06→21:03)
[2022-05-16] MEDS ORDERED: HEPARIN SOD (PORCINE) 5000UNITS/ML 1ML VIAL/SYRINGE SC SCH (06:00)
[2022-05-16 07:04] LABS: HEMATOCRIT 36.6 % (42.0-52.0); HEMOGLOBIN 12.1 g/dl (13.5-17.5); MEAN CORPUSCULAR HGB CONC 33.1 g/dl (32.0-36.5); MEAN CORPUSCULAR VOLUME 99.7 fl (80.0-96.0); PLATELET COUNT, AUTOMATED 232 10^3/uL (150-450); RED BLOOD COUNT 3.67 10^6/uL (4.30-6.10); WHITE BLOOD COUNT 9.8 10^3/uL (4.0-10.0)
[2022-05-16 07:31] LABS: ALBUMIN 3.3 G/DL (3.2-5.2); ALKALINE PHOSPHATASE 71 U/L (46-116); ALT/SGPT 14 U/L (7.0-40); AST/SGOT 20 U/L (<34); BILIRUBIN,TOTAL 0.6 MG/DL (0.3-1.2); BLOOD UREA NITROGEN 12 MG/DL (9-23); CALCIUM LEVEL 9.2 MG/DL (8.3-10.6); CARBON DIOXIDE LEVEL 28 MMOL/L (20-31); CHLORIDE LEVEL 107 MMOL/L (98-107); CREATININE FOR GFR 0.67 MG/DL (0.70-1.30); GLOMERULAR FILTRATION RATE > 60.0 (>35); GLUCOSE, FASTING 91 MG/DL (74-106); POTASSIUM SERUM 4.1 MMOL/L (3.5-5.1); SODIUM LEVEL 142 MMOL/L (136-145); TOTAL PROTEIN 6.4 G/DL (5.7-8.2)
[2022-05-16 10:01] VITALS: BP 130/69
[2022-05-16] MEDS ORDERED: CYCLOBENZAPRINE 5MG TABLET PO ONE (12:00)
[2022-05-16] MEDS: MULTIVITAMINS/MINERALS THERAP 1 TAB PO SCH (12:39)
[2022-05-16] MEDS: HYDROXYCHLOROQUINE 200 MG TAB PO SCH ×2 (12:40→21:03)
[2022-05-16] MEDS: OMEPRAZOLE 20MG CAP PO SCH (12:40)
[2022-05-16] MEDS: VITAMIN D 1,000 INTERNATIONAL UNITS TABLET PO SCH (12:40)
[2022-05-16 14:37] VITALS: BP 120/69
[2022-05-16] MEDS: SIMETHICONE 80MG CHEW TAB PO PRN (16:03)
[2022-05-16] MEDS: RIVAROXABAN 10MG TAB (XARELTO) PO SCH (18:10)
[2022-05-16 20:00] VITALS: BP 137/71
[2022-05-16] MEDS ORDERED: DOCUSATE SODIUM 100MG CAPSULE PO SCH (21:00)
[2022-05-16] MEDS: CYANOCOBALAMIN 500 MCG TAB PO SCH (21:03)
[2022-05-16] MEDS: TAMSULOSIN 0.4 MG CAP PO SCH (21:03)
[2022-05-16] MEDS: CYCLOBENZAPRINE 5MG TABLET PO SCH (21:03)
[2022-05-16] MEDS: FINASTERIDE 5MG TAB PO SCH (21:03)
[2022-05-17] MEDS: MORPHINE 2 MG/ML 1ML VIAL IV PRN ×2 (03:34→08:51)
[2022-05-17] MEDS: CYCLOBENZAPRINE 5MG TABLET PO SCH ×3 (05:34→21:21)
[2022-05-17 06:00] VITALS: BP 133/71
[2022-05-17] MEDS ORDERED: KETOROLAC 30 MG/ML 1ML VIAL IV PRN (07:10)
[2022-05-17] MEDS: SIMETHICONE 80MG CHEW TAB PO PRN (08:48)
[2022-05-17] MEDS: DOCUSATE SODIUM 100MG CAPSULE PO SCH ×2 (08:48→21:21)
[2022-05-17] MEDS: OMEPRAZOLE 20MG CAP PO SCH (08:48)
[2022-05-17] MEDS: MULTIVITAMINS/MINERALS THERAP 1 TAB PO SCH (08:48)
[2022-05-17] MEDS: MOM 30ML SUSPENSION UDC PO PRN (08:48)
[2022-05-17] MEDS: VITAMIN D 1,000 INTERNATIONAL UNITS TABLET PO SCH (08:48)
[2022-05-17] MEDS: GABAPENTIN 100 MG CAP PO SCH ×2 (08:48→21:21)
[2022-05-17] MEDS: HYDROXYCHLOROQUINE 200 MG TAB PO SCH ×2 (08:48→21:21)
[2022-05-17] MEDS ORDERED: allopurinoL 300 MG TAB PO SCH (09:00)
[2022-05-17] MEDS ORDERED: PREVNAR-20 VACCINE 0.5ML SYRINGE IM.IMMUN ONE (09:00)
[2022-05-17] MEDS ORDERED: MORPHINE 2 MG/ML 1ML VIAL IV PRN (11:45)
[2022-05-17] MEDS: ACETAMINOPHEN 500 MG TAB PO SCH ×2 (12:38→18:18)
[2022-05-17] MEDS: LIDOCAINE 5% (LIDODERM) PATCH TD SCH (12:38)
[2022-05-17] MEDS: DICLOFENAC EPOLAMINE 1.3% PATCH TOP SCH ×2 (12:39→21:22)
[2022-05-17 14:00] VITALS: BP 112/71
[2022-05-17] MEDS: RIVAROXABAN 10MG TAB (XARELTO) PO SCH (18:17)
[2022-05-17] MEDS: KETOROLAC 30 MG/ML 1ML VIAL IV PRN (18:19)
[2022-05-17] MEDS: FINASTERIDE 5MG TAB PO SCH (21:22)
[2022-05-17] MEDS: CYANOCOBALAMIN 500 MCG TAB PO SCH (21:22)
[2022-05-17] MEDS: TAMSULOSIN 0.4 MG CAP PO SCH (21:22)
[2022-05-17 22:00] VITALS: BP 102/74
[2022-05-18] MEDS: ACETAMINOPHEN 500 MG TAB PO SCH ×5 (00:15→23:09)
[2022-05-18] MEDS: CYCLOBENZAPRINE 5MG TABLET PO SCH ×3 (05:21→23:07)
[2022-05-18] MEDS: MOM 30ML SUSPENSION UDC PO PRN (05:21)
[2022-05-18 05:47] LABS: HEMOGLOBIN 12.3 g/dl (13.5-17.5); MEAN CORPUSCULAR HEMOGLOBIN 32.9 pg (27.0-33.0); MEAN CORPUSCULAR HGB CONC 33.2 g/dl (32.0-36.5); MEAN CORPUSCULAR VOLUME 98.9 fl (80.0-96.0); PLATELET COUNT, AUTOMATED 215 10^3/uL (150-450); RED BLOOD COUNT 3.74 10^6/uL (4.30-6.10); WHITE BLOOD COUNT 10.8 10^3/uL (4.0-10.0)
[2022-05-18 05:50] VITALS: BP 125/61
[2022-05-18 06:14] LABS: BLOOD UREA NITROGEN 26 MG/DL (9-23); CARBON DIOXIDE LEVEL 28 MMOL/L (20-31); CHLORIDE LEVEL 104 MMOL/L (98-107); CREATININE FOR GFR 0.78 MG/DL (0.70-1.30); GLOMERULAR FILTRATION RATE > 60.0 (>35); GLUCOSE, FASTING 101 MG/DL (74-106); POTASSIUM SERUM 3.8 MMOL/L (3.5-5.1); SODIUM LEVEL 137 MMOL/L (136-145)
[2022-05-18] MEDS: KETOROLAC 30 MG/ML 1ML VIAL IV PRN ×2 (06:32→20:19)
[2022-05-18] MEDS: MIRALAX *UNIT DOSE* 17GM PACKET PO SCH ×2 (09:00→20:14)
[2022-05-18] MEDS: METAMUCIL (PSYLLIUM) PACKET PO SCH ×2 (09:00→20:13)
[2022-05-18] MEDS: OMEPRAZOLE 20MG CAP PO SCH (10:13)
[2022-05-18] MEDS: DOCUSATE SODIUM 100MG CAPSULE PO SCH ×2 (10:13→20:12)
[2022-05-18] MEDS: MULTIVITAMINS/MINERALS THERAP 1 TAB PO SCH (10:13)
[2022-05-18] MEDS: HYDROXYCHLOROQUINE 200 MG TAB PO SCH ×2 (10:13→20:13)
[2022-05-18] MEDS: VITAMIN D 1,000 INTERNATIONAL UNITS TABLET PO SCH (10:13)
[2022-05-18] MEDS: GABAPENTIN 100 MG CAP PO SCH ×3 (10:14→20:13)
[2022-05-18] MEDS: LIDOCAINE 5% (LIDODERM) PATCH TD SCH (10:14)
[2022-05-18] MEDS: DICLOFENAC EPOLAMINE 1.3% PATCH TOP SCH ×2 (10:15→20:13)
[2022-05-18 14:00] VITALS: BP 115/69
[2022-05-18] MEDS: RIVAROXABAN 10MG TAB (XARELTO) PO SCH (17:33)
[2022-05-18] MEDS: TAMSULOSIN 0.4 MG CAP PO SCH (20:12)
[2022-05-18] MEDS: FINASTERIDE 5MG TAB PO SCH (20:12)
[2022-05-18] MEDS: CYANOCOBALAMIN 500 MCG TAB PO SCH (20:12)
[2022-05-18 20:21] VITALS: BP 110/58
[2022-05-18] MEDS: MORPHINE 4 MG/ML 1ML VIAL IV PRN (23:19)
[2022-05-19] MEDS: CYCLOBENZAPRINE 5MG TABLET PO SCH (06:08)
[2022-05-19] MEDS: ACETAMINOPHEN 500 MG TAB PO SCH ×4 (06:08→23:12)
[2022-05-19] MEDS: KETOROLAC 30 MG/ML 1ML VIAL IV PRN (06:09)
[2022-05-19 06:36] VITALS: BP 131/70
[2022-05-19] MEDS: METAMUCIL (PSYLLIUM) PACKET PO SCH ×2 (08:23→21:00)
[2022-05-19] MEDS: MIRALAX *UNIT DOSE* 17GM PACKET PO SCH ×2 (08:23→21:00)
[2022-05-19] MEDS: LIDOCAINE 5% (LIDODERM) PATCH TD SCH (08:24)
[2022-05-19] MEDS: DICLOFENAC EPOLAMINE 1.3% PATCH TOP SCH ×2 (08:24→21:07)
[2022-05-19] MEDS: MULTIVITAMINS/MINERALS THERAP 1 TAB PO SCH (08:25)
[2022-05-19] MEDS: DOCUSATE SODIUM 100MG CAPSULE PO SCH ×2 (08:25→21:07)
[2022-05-19] MEDS: OMEPRAZOLE 20MG CAP PO SCH (08:25)
[2022-05-19] MEDS: HYDROXYCHLOROQUINE 200 MG TAB PO SCH ×2 (08:25→21:07)
[2022-05-19] MEDS: VITAMIN D 1,000 INTERNATIONAL UNITS TABLET PO SCH (08:25)
[2022-05-19] MEDS: GABAPENTIN 100 MG CAP PO SCH ×3 (08:25→21:07)
[2022-05-19 08:38] LABS: HEMATOCRIT 39.2 % (42.0-52.0); HEMOGLOBIN 12.9 g/dl (13.5-17.5); MEAN CORPUSCULAR HEMOGLOBIN 33.1 pg (27.0-33.0); MEAN CORPUSCULAR HGB CONC 32.9 g/dl (32.0-36.5); MEAN CORPUSCULAR VOLUME 100.5 fl (80.0-96.0); PLATELET COUNT, AUTOMATED 236 10^3/uL (150-450); WHITE BLOOD COUNT 11.2 10^3/uL (4.0-10.0)
[2022-05-19 08:54] LABS: BLOOD UREA NITROGEN 26 MG/DL (9-23); CARBON DIOXIDE LEVEL 30 MMOL/L (20-31); CHLORIDE LEVEL 102 MMOL/L (98-107); CREATININE FOR GFR 0.84 MG/DL (0.70-1.30); GLOMERULAR FILTRATION RATE > 60.0 (>35); GLUCOSE, FASTING 89 MG/DL (74-106); POTASSIUM SERUM 4.2 MMOL/L (3.5-5.1); SODIUM LEVEL 136 MMOL/L (136-145)
[2022-05-19] MEDS: AUGMENTIN 875 MG TAB PO SCH ×2 (12:35→21:07)
[2022-05-19 14:00] VITALS: BP 110/64
[2022-05-19] MEDS: CYCLOBENZAPRINE 10MG TABLET PO SCH ×2 (14:03→21:07)
[2022-05-19] MEDS: RIVAROXABAN 10MG TAB (XARELTO) PO SCH (18:02)
[2022-05-19] MEDS: CYANOCOBALAMIN 500 MCG TAB PO SCH (21:07)
[2022-05-19] MEDS: TAMSULOSIN 0.4 MG CAP PO SCH (21:07)
[2022-05-19] MEDS: FINASTERIDE 5MG TAB PO SCH (21:07)
[2022-05-19] MEDS: MORPHINE 4 MG/ML 1ML VIAL IV PRN (23:12)
[2022-05-20] MEDS: ACETAMINOPHEN 500 MG TAB PO SCH ×3 (05:47→17:31)
[2022-05-20] MEDS: CYCLOBENZAPRINE 10MG TABLET PO SCH ×3 (05:47→21:30)
[2022-05-20] MEDS: KETOROLAC 30 MG/ML 1ML VIAL IV PRN ×2 (05:47→16:54)
[2022-05-20 06:00] VITALS: BP 112/60
[2022-05-20 06:01] LABS: HEMATOCRIT 34.1 % (42.0-52.0); HEMOGLOBIN 11.1 g/dl (13.5-17.5); MEAN CORPUSCULAR HEMOGLOBIN 32.7 pg (27.0-33.0); MEAN CORPUSCULAR HGB CONC 32.6 g/dl (32.0-36.5); MEAN CORPUSCULAR VOLUME 100.6 fl (80.0-96.0); PLATELET COUNT, AUTOMATED 214 10^3/uL (150-450); RED BLOOD COUNT 3.39 10^6/uL (4.30-6.10); WHITE BLOOD COUNT 11.1 10^3/uL (4.0-10.0)
[2022-05-20 06:24] LABS: BLOOD UREA NITROGEN 34 MG/DL (9-23); CALCIUM LEVEL 8.4 MG/DL (8.3-10.6); CARBON DIOXIDE LEVEL 29 MMOL/L (20-31); CHLORIDE LEVEL 103 MMOL/L (98-107); CREATININE FOR GFR 0.78 MG/DL (0.70-1.30); GLOMERULAR FILTRATION RATE > 60.0 (>35); GLUCOSE, FASTING 93 MG/DL (74-106); POTASSIUM SERUM 4.8 MMOL/L (3.5-5.1); SODIUM LEVEL 137 MMOL/L (136-145)
[2022-05-20] MEDS: HYDROXYCHLOROQUINE 200 MG TAB PO SCH ×2 (08:45→21:30)
[2022-05-20] MEDS: MULTIVITAMINS/MINERALS THERAP 1 TAB PO SCH (08:45)
[2022-05-20] MEDS: GABAPENTIN 100 MG CAP PO SCH ×3 (08:45→21:30)
[2022-05-20] MEDS: OMEPRAZOLE 20MG CAP PO SCH (08:45)
[2022-05-20] MEDS: VITAMIN D 1,000 INTERNATIONAL UNITS TABLET PO SCH (08:45)
[2022-05-20] MEDS: AUGMENTIN 875 MG TAB PO SCH ×2 (08:45→21:30)
[2022-05-20] MEDS: METAMUCIL (PSYLLIUM) PACKET PO SCH ×2 (08:46→21:00)
[2022-05-20] MEDS: DOCUSATE SODIUM 100MG CAPSULE PO SCH ×2 (08:46→21:30)
[2022-05-20] MEDS: LIDOCAINE 5% (LIDODERM) PATCH TD SCH (08:46)
[2022-05-20] MEDS: MIRALAX *UNIT DOSE* 17GM PACKET PO SCH ×2 (08:46→21:00)
[2022-05-20] MEDS: DICLOFENAC EPOLAMINE 1.3% PATCH TOP SCH ×2 (08:47→21:31)
[2022-05-20] MEDS: RIVAROXABAN 10MG TAB (XARELTO) PO SCH (17:30)
[2022-05-20] MEDS: FINASTERIDE 5MG TAB PO SCH (21:30)
[2022-05-20] MEDS: CYANOCOBALAMIN 500 MCG TAB PO SCH (21:30)
[2022-05-20] MEDS: TAMSULOSIN 0.4 MG CAP PO SCH (21:30)
[2022-05-21] MEDS: ACETAMINOPHEN 500 MG TAB PO SCH ×4 (00:49→17:09)
[2022-05-21] MEDS: CYCLOBENZAPRINE 10MG TABLET PO SCH ×3 (05:38→21:25)
[2022-05-21 06:00] VITALS: BP 113/60
[2022-05-21] MEDS: GABAPENTIN 100 MG CAP PO SCH ×3 (08:50→21:25)
[2022-05-21] MEDS: AUGMENTIN 875 MG TAB PO SCH ×2 (08:50→21:25)
[2022-05-21] MEDS: MULTIVITAMINS/MINERALS THERAP 1 TAB PO SCH (08:50)
[2022-05-21] MEDS: OMEPRAZOLE 20MG CAP PO SCH (08:51)
[2022-05-21] MEDS: DICLOFENAC EPOLAMINE 1.3% PATCH TOP SCH ×2 (08:51→21:25)
[2022-05-21] MEDS: LIDOCAINE 5% (LIDODERM) PATCH TD SCH (08:51)
[2022-05-21] MEDS: VITAMIN D 1,000 INTERNATIONAL UNITS TABLET PO SCH (08:51)
[2022-05-21] MEDS: DOCUSATE SODIUM 100MG CAPSULE PO SCH ×2 (08:51→21:25)
[2022-05-21] MEDS: HYDROXYCHLOROQUINE 200 MG TAB PO SCH ×2 (08:51→21:24)
[2022-05-21] MEDS: MIRALAX *UNIT DOSE* 17GM PACKET PO SCH ×2 (08:52→21:32)
[2022-05-21] MEDS: METAMUCIL (PSYLLIUM) PACKET PO SCH ×2 (08:52→21:32)
[2022-05-21] MEDS: RIVAROXABAN 10MG TAB (XARELTO) PO SCH (17:08)
[2022-05-21] MEDS: FINASTERIDE 5MG TAB PO SCH (21:25)
[2022-05-21] MEDS: CYANOCOBALAMIN 500 MCG TAB PO SCH (21:25)
[2022-05-21] MEDS: TAMSULOSIN 0.4 MG CAP PO SCH (21:25)
[2022-05-22] MEDS: ACETAMINOPHEN 500 MG TAB PO SCH ×3 (00:21→12:02)
[2022-05-22] MEDS: CYCLOBENZAPRINE 10MG TABLET PO SCH (05:52)
[2022-05-22 06:00] VITALS: BP 128/66
[2022-05-22] MEDS: METAMUCIL (PSYLLIUM) PACKET PO SCH (08:13)
[2022-05-22] MEDS: MIRALAX *UNIT DOSE* 17GM PACKET PO SCH (08:13)
[2022-05-22] MEDS: GABAPENTIN 100 MG CAP PO SCH (08:14)
[2022-05-22] MEDS: OMEPRAZOLE 20MG CAP PO SCH (08:14)
[2022-05-22] MEDS: AUGMENTIN 875 MG TAB PO SCH (08:14)
[2022-05-22] MEDS: DOCUSATE SODIUM 100MG CAPSULE PO SCH (08:14)
[2022-05-22] MEDS: VITAMIN D 1,000 INTERNATIONAL UNITS TABLET PO SCH (08:14)
[2022-05-22] MEDS: MULTIVITAMINS/MINERALS THERAP 1 TAB PO SCH (08:14)
[2022-05-22] MEDS: HYDROXYCHLOROQUINE 200 MG TAB PO SCH (08:14)
[2022-05-22] MEDS: LIDOCAINE 5% (LIDODERM) PATCH TD SCH (08:15)
[2022-05-22] MEDS: DICLOFENAC EPOLAMINE 1.3% PATCH TOP SCH (08:15)
[2022-05-22] MEDS ORDERED: AMOX875T2 PO (12:47)
[2022-05-22] MEDS ORDERED: ACET-683 PO (12:47)
[2022-05-22] MEDS ORDERED: CYCL10TA20 PO (12:47)
[2022-05-22] MEDS ORDERED: MIRA1POW3 PO (12:47)
[2022-05-22] MEDS ORDERED: GABA-1171 PO (12:47)
[2022-05-22] MEDS ORDERED: LIDO5TD TD (12:47)
[2022-05-22] MEDS ORDERED: DICL1PAT6 TOP (12:47)
== END 2022-05-22 13:16 | DRG 184 ==
LOC: M ED 17:45 → M ED INP 23:27 → M MSPAV 05-16 09:52
PROVIDERS: ADMIT Family Medicine; ATTEND Internal Medicine Nephrology
DX: S22.41XA Multiple fractures of ribs, right side, initial encounter for closed fracture (principal); J98.11 Atelectasis; N40.1 Benign prostatic hyperplasia with lower urinary tract symptoms; M19.90 Unspecified osteoarthritis, unspecified site; K58.9 Irritable bowel syndrome, unspecified; E78.5 Hyperlipidemia, unspecified; R33.9 Retention of urine, unspecified; M48.061 Spinal stenosis, lumbar region without neurogenic claudication; I44.0 Atrioventricular block, first degree; M51.34 Other intervertebral disc degeneration, thoracic region; M81.0 Age-related osteoporosis without current pathological fracture; M06.9 Rheumatoid arthritis, unspecified; D64.9 Anemia, unspecified; M51.36 Other intervertebral disc degeneration, lumbar region; R09.02 Hypoxemia; M10.9 Gout, unspecified; R25.1 Tremor, unspecified; I71.9 Aortic aneurysm of unspecified site, without rupture; R91.1 Solitary pulmonary nodule; J92.0 Pleural plaque with presence of asbestos; K21.9 Gastro-esophageal reflux disease without esophagitis; W00.0XXA Fall on same level due to ice and snow, initial encounter; Y92.9 Unspecified place or not applicable; Z90.49 Acquired absence of other specified parts of digestive tract; Z90.79 Acquired absence of other genital organ(s); Z87.891 Personal history of nicotine dependence; Z79.52 Long term (current) use of systemic steroids; Z79.899 Other long term (current) drug therapy; Z88.8 Allergy status to other drugs, medicaments and biological substances; Z91.048 Other nonmedicinal substance allergy status; Z66 Do not resuscitate

== ENCOUNTER → 2023-10-10 | Outpatient (CLI) | payer MEDICARE, OTHER ==
[~2023-10-10] MED LIST changes: +ACET-683 PO; +ALLO300T2 PO; +AMOX875T2 PO; +CYCL10TA20 PO; +DICL1PAT6 TOP; +ESOM1CAP20 PO; +ESOM40CA35; -HYDR200T3 PO; +HYDR200T46 PO; +LIDO5TD TD; +MIRA33506 PO; +OYST500T91 PO; +PRED1TABL PO; +VITMTA PO; +[UNRECOGNIZED DRUG - CODE]; +[UNRECOGNIZED DRUG - CODE] PO
== END ==
LOC: M SOG 08:00
PROVIDERS: ATTEND Physician Assistant
DX: M25.512 Pain in left shoulder (principal)

== ENCOUNTER → 2023-11-14 | Outpatient (REF) | payer MEDICARE, OTHER ==
[~2023-11-14] MED LIST changes: +ALFU10TA23 PO; -ALFU10TA3 PO
== END ==
LOC: M LAB REF 12:31
PROVIDERS: ATTEND Internal Medicine Gastroenterology
DX: K58.0 Irritable bowel syndrome with diarrhea (principal); R19.7 Diarrhea, unspecified

== ENCOUNTER → 2023-12-19 | Outpatient (CLI) | payer MEDICARE, OTHER | LOC: M PLAIMG 13:39 | PROVIDERS: ATTEND Internal Medicine | DX: M54.51 Vertebrogenic low back pain (principal); M51.36 Other intervertebral disc degeneration, lumbar region ==

== ENCOUNTER → 2023-12-19 | Outpatient (CLI) | payer MEDICARE, OTHER | LOC: M WHC 13:38 | PROVIDERS: ATTEND Internal Medicine | DX: Z13.820 Encounter for screening for osteoporosis (principal); M85.89 Other specified disorders of bone density and structure, multiple sites ==

== ENCOUNTER → 2024-02-17 | Outpatient (REF) | LOC: M PLAIMG 09:56 | PROVIDERS: ATTEND Nurse Practitioner Family | DX: M25.511 Pain in right shoulder (principal); M25.512 Pain in left shoulder; M25.532 Pain in left wrist; M25.559 Pain in unspecified hip; M17.0 Bilateral primary osteoarthritis of knee ==

== ENCOUNTER → 2024-04-12 | Outpatient (REF) | payer MEDICARE, OTHER ==
[2024-04-12 17:15] LABS: APPEARANCE, URINE HAZY (CLEAR); BACTERIA, URINE AUTO NEGATIVE (NEGATIVE); BILIRUBIN, URINE AUTO NEGATIVE (NEGATIVE); BLOOD, URINE BLOOD NEGATIVE (NEGATIVE); COLOR, URINE YELLOW (YELLOW); GLUCOSE, URINE (UA) AUTO NEGATIVE (NEGATIVE); KETONE, URINE AUTO NEGATIVE (NEGATIVE); LEUKOCYTE ESTERASE, URINE AUTO 1+ (NEGATIVE); MUCUS, URINE SMALL (NEGATIVE); NITRITE, URINE AUTO NEGATIVE (NEGATIVE); PROTEIN, URINE AUTO NEGATIVE (NEGATIVE); RBC, URINE AUTO 1 /HPF (0-3); SQUAMOUS EPITHELIAL CELL UR AU 0 /HPF (0-6); UROBILINOGEN, URINE AUTO 0.2 mg/dL (0.0-2.0); WBC, URINE AUTO 13 /HPF (0-3)
== END ==
LOC: M LAB REF 16:10
PROVIDERS: ATTEND Physician Assistant Medical
DX: N39.0 Urinary tract infection, site not specified (principal)

== ENCOUNTER → 2024-05-24 | Outpatient (REF) | payer MEDICARE, OTHER ==
[2024-05-24 18:03] LABS: APPEARANCE, URINE HAZY (CLEAR); BACTERIA, URINE AUTO NEGATIVE (NEGATIVE); BILIRUBIN, URINE AUTO NEGATIVE (NEGATIVE); BLOOD, URINE BLOOD NEGATIVE (NEGATIVE); COLOR, URINE YELLOW (YELLOW); GLUCOSE, URINE (UA) AUTO NEGATIVE (NEGATIVE); KETONE, URINE AUTO NEGATIVE (NEGATIVE); LEUKOCYTE ESTERASE, URINE AUTO NEGATIVE (NEGATIVE); MUCUS, URINE SMALL (NEGATIVE); NITRITE, URINE AUTO NEGATIVE (NEGATIVE); PROTEIN, URINE AUTO NEGATIVE (NEGATIVE); RBC, URINE AUTO 1 /HPF (0-3); SPECIFIC GRAVITY URINE AUTO 1.019 (1.002-1.035); SQUAMOUS EPITHELIAL CELL UR AU 1 /HPF (0-6); UROBILINOGEN, URINE AUTO 0.2 mg/dL (0.0-2.0); WBC, URINE AUTO 0 /HPF (0-3)
== END ==
LOC: M SMT 17:07
PROVIDERS: ATTEND Physician Assistant
DX: N40.1 Benign prostatic hyperplasia with lower urinary tract symptoms (principal)

== ENCOUNTER → 2024-11-15 | Outpatient (CLI) | payer MEDICARE, OTHER ==
[~2024-11-15] MED LIST changes: +PRED-1142 PO; -PRED1TABL PO; -RA S8.6T3 PO; +SENN18TA PO
== END ==
LOC: M RAD 13:27
PROVIDERS: ATTEND Physician Assistant
DX: R39.14 Feeling of incomplete bladder emptying (principal)